=== PATIENT | female | born 1965 | race Caucasian/White ===

== ENCOUNTER 2019-07-03 08:59 | Outpatient (CLI) | payer BC ==
[~2019-07-03] VITALS: Ht 157.5 cm; Wt 179.6 kg
[2019-07-03] VITALS (11 sets, daily range): BP systolic 110–139; BP diastolic 62–86
[~2019-07-03 08:59] MED LIST: BUPR300T3 PO; FENO145T3 PO; FLUT9.9S NS; FURO-69 PO; GABA600T7 PO; HYDR-2769 PO; HYOS0.1264 PO; IODIXANOL 320 MG/ML 100 ML VIAL. ONE; LIDOCAINE 1% Multi-Dose 20 ML VIAL. ONE; LIRA0.6P2 SQ; LISI10TA2 PO; LORA10TA3 PO; MELO15TA23 PO; METF10007 PO; METH-38 PO; MONT10TA49 PO; ONDA4TAB7 PO; RANI150T2 PO
[2019-07-03 09:35] LABS: HEMATOCRIT 42.9 % (36.0-47.0); RED BLOOD COUNT 4.81 x10^6/uL (3.50-5.40); RED CELL DISTRIBUTION WIDTH 15.4 % (11.5-14.5); WHITE BLOOD COUNT 11.9 x10^3/uL (4.0-11.0)
[2019-07-03 09:41] LABS: PROTHROMBIN TIME PATIENT 12.1 SEC (11.7-14.0)
[2019-07-03 09:43] LABS: CALCIUM 9.5 mg/dL (8.5-10.1); CREATININE 0.9 mg/dL (0.6-1.0); GFR 65.5; POTASSIUM 3.9 mmol/L (3.5-5.1)
[2019-07-03] MEDS ORDERED: AMLO5TAB10 PO (09:52)
[2019-07-03] MEDS ORDERED: GABA300C18 PO (09:52)
[2019-07-03] MEDS ORDERED: VENTOLIN HFA18 GM INH (09:52)
[2019-07-03] MEDS ORDERED: NPH,100I3 SQ ×2 (09:52)
[2019-07-03] MEDS ORDERED: NORT25CA PO (09:52)
[2019-07-03] MEDS ORDERED: LISI-130 PO (09:52)
[2019-07-03] MEDS ORDERED: CELE100C PO (09:52)
[2019-07-03] MEDS ORDERED: FENO160T PO (09:52)
[2019-07-03] MEDS ORDERED: fentaNYL PF VIAL 100 MCG/2 ML VIAL ONE ×3 (09:58→11:14)
[2019-07-03] MEDS ORDERED: MIDAZOLAM HCL/PF 2 MG/2 ML VIAL. ONE ×3 (09:58→11:14)
[2019-07-03] MEDS ORDERED: NITROGLYCERIN 200 MCG/2 ML SYRINGE FOR CATH/VASC LAB. ONE (09:59)
[2019-07-03] MEDS ORDERED: VERAPAMIL 5 MG/2 ML VIAL. ONE (09:59)
[2019-07-03] MEDS ORDERED: HEPARIN for IV BOLUS 10,000 UNIT/10 ML VIAL. ONE (09:59)
[2019-07-03] MEDS ORDERED: NITROGLYCERIN 200 MCG/2 ML SYRINGE FOR CATH/VASC LAB. IART ONE (10:15)
[2019-07-03] MEDS ORDERED: fentaNYL PF VIAL 100 MCG/2 ML VIAL IV ONE (10:15)
[2019-07-03] MEDS ORDERED: HEPARIN for IV BOLUS 10,000 UNIT/10 ML VIAL. IART ONE (10:15)
[2019-07-03] MEDS ORDERED: IODIXANOL 320 MG/ML 100 ML VIAL. IART ONE (10:15)
[2019-07-03] MEDS ORDERED: MIDAZOLAM HCL/PF 2 MG/2 ML VIAL. IV ONE (10:15)
[2019-07-03] MEDS ORDERED: LIDOCAINE 1% Multi-Dose 20 ML VIAL. INJ ONE (10:15)
[2019-07-03] MEDS ORDERED: CONTRAST GIVEN. MC PRN (10:15)
[2019-07-03] MEDS ORDERED: VERAPAMIL 5 MG/2 ML VIAL. IART ONE (10:15)
[2019-07-03] MEDS ORDERED: diphenhydrAMINE 50 MG/ML VIAL ONE (11:02)
[2019-07-03] MEDS ORDERED: diphenhydrAMINE 50 MG/ML VIAL IVP ONE (11:30)
--- NOTE | 2019-07-03 12:02 | NUR ---
Respiratory therapy called to come do breathing treatment at bedside, patient's oxygen saturation = 84% and patient stated her daughter has her inhaler but her daughter left to run some errands.
--- NOTE | 2019-07-03 12:05 | CARD ---
MR#: [id number] Date of Study: 07/03/2019 Ordering Physician: ALYSSA MALDONADO Referring Physician: ALYSSA MALDONADO Tech: RT William (Wild) KATHY APPROVED REPORT Technologist: RT William (R) KATHY Nurse: Shanon Stiles RN Procedure(s) performed: Aortogram with bilateral lower extremity runoff Flouro time 3.8 minutes dose [id number] contrast 144 Visipaque Moderate Sedation 71 minutes INDICATION The indication(s) include : Nonhealing wound and peripheral artery stenosis on arterial duplex scan. PROCEDURE NARRATIVE After explaining the risks, benefits and alternative options, informed consent was obtained from jeison ent. Patient was brought to the cardiac Astrophysics Teacher and her left wrist was prepped and draped in the usu al fashion after confirming a positive modified Chandrakant's test. Arterial access was obtained in the lef t radial artery and 6 Faroese sheath was inserted. 6 Faroese PV catheter was used to perform descending aortogram. This was then advanced into the right external iliac artery and selective right lower ext remity angiography was performed. Subsequently, with this tip positioned in the left common iliac art angeli, selective left lower extremity angiography was performed. Patient tolerated the procedure well. Hemostasis was achieved using TR band. There were no immediate complications FINDINGS 1. No significant stenosis involving the distal descending aorta 2. No significant stenosis involving bilateral common and external iliac arteries 3. No significant stenosis involving bilateral common femoral arteries 4. No significant stenosis involving bilateral superficial femoral arteries 5. No significant stenosis involving bilateral popliteal arteries. There is three-vessel runoff belo w the knee bilaterally. Conclusion No significant peripheral artery stenosis. Signed by : Alyssa Maldonado, Electronically Approved : 07/03/2019 12:05:05
[2019-07-03] MEDS ORDERED: IV 1/2 NORMAL SALINE 1,000 ML IV SCH (12:06)
--- NOTE | 2019-07-03 12:06 | PDOC ---
MODERATE SEDATION ASSESSMENT RISKS/ALTERNATIVES Risks/Alternatives Risks and alternatives of this type of sedation and procedure discussed with: RISK/ALTERNATIVES: Patient H & P ON CHART H & P H & P on chart and reviewed for co-morbid conditions and appropriate labs. H&P ON CHART: Yes STATUS PREG STATUS ASSESSED: N/A MEDS/ALLERGIES REVIEWED Meds/Allergies Reviewed Medications and Allergies including time and route of recently administered narcotics and sedatives. MEDS/ALLERGIES REVIEWED: Yes ASA RATING ASA RATING: III AIRWAY ASSESSMENT Airway Assessment Airway patency, oral function limitations, presence of caps, crowns, dentures, partials, and ability to extend neck assessed. AIRWAY ASSESSMENT: Yes MALLAMPATI SCORE MALLAMPATI SCORE: II PRE-SEDATION ASSESSMENT PRE-SEDATION ASSESSMENT: Yes ALYSSA ROCHA MD Jul 03, 2019 12:06
--- NOTE | 2019-07-03 14:57 | NUR ---
Discharge Note: GERARDO MORLEY Discharge instructions and discharge home medications reviewed with Patient and daughter and a copy given. All questions have been answered and understanding verbalized. Patient ate lunch with no issues. The following instructions and handouts were given: moderate sedation, radial site care and peripheral vascular disease. Discontinued lines and drains: right hand, dressing clean dry intact. Patient discharged to home with daughter via wheelchair to private vehicle.
== END 2019-07-03 14:40 | disposition home or self-care (01) ==
LOC: CCL 08:59
PROVIDERS: ATTEND Internal Medicine Cardiovascular Disease
DX: I70.211 Atherosclerosis of native arteries of extremities with intermittent claudication, right leg (principal)
CPT/HCPCS: 36245; 36246; 36415; 75625; 75716; 80048; 85027; 85610; 94640; 99152; 99153; C1713; C1769; C1892; J1200; J1644; J2250; J3010; J3490; Q9967

== ENCOUNTER 2019-07-18 19:12 | Inpatient (IN) | payer BC ==
[~2019-07-18] VITALS: Ht 157.5 cm; Wt 177.1 kg
[~2019-07-18 19:12] MED LIST changes: +AMLO5TAB10 PO; +CELE100C PO; +FENO160T PO; +GABA300C18 PO; -IODIXANOL 320 MG/ML 100 ML VIAL. ONE; -LIDOCAINE 1% Multi-Dose 20 ML VIAL. ONE; +LISI-130 PO; +NORT25CA PO; +NPH,100I3 SQ; +VENTOLIN HFA18 GM INH
[2019-07-18 23:51] LABS: BASO # 0.1 x10^3/uL (0.0-0.2); BASO % 1 % (0-3); EOS % 0 % (0-3); HEMATOCRIT 37.5 % (36.0-47.0); HEMOGLOBIN 12.3 g/dL (12.0-15.5); LYMPH % 8 % (24-48); MEAN CORPUSCULAR HEMOGLOBIN 29 pg (25-35); MEAN CORPUSCULAR HGB CONC 33 g/dL (31-37); MEAN CORPUSCULAR VOLUME 88 fL (79-100); MONO # 0.6 x10^3/uL (0.0-1.1); MONO % 5 % (0-9); NEUT # 11.3 x10^3/uL (1.8-7.7); NEUT % 87 % (31-73); PLATELET COUNT 315 x10^3/uL (140-400); RED BLOOD COUNT 4.28 x10^6/uL (3.50-5.40); RED CELL DISTRIBUTION WIDTH 15.7 % (11.5-14.5); WHITE BLOOD COUNT 13.1 x10^3/uL (4.0-11.0)
--- NOTE | 2019-07-18 23:55 | PHYS DOC ---
Adult General Chief Complaint Chief Complaint: CELLULITIS HPI HPI 53-year-old female presents to the emergency department with complaints of lower extremity infection. Patient has a history of diabetes, depression, GERD, chronic pain. Patient has as an outpatient and being treated for lower extremity wounds however she's noticed increasing erythema and pain to her right lower extremity. She did have a procedure done by Dr. Ruiz with angiography on July 03, 2018. Patient states the wound care has been ongoing for a few months. She describes chills, pain to RLE, open wounds with drainage. States she has had vascular imaging to eval arterial blood flow which was negative.. Patient does complain of nausea on exam Review of Systems Review of Systems Constitutional: chills Respiratory: Denies cough or shortness of breath [] Cardiovascular: No additional information not addressed in HPI [] GI: Denies abdominal pain, + nausea, no vomiting, bloody stools or diarrhea [] Musculoskeletal: right lower ext pain Integument: erythema/warmth appreciated to right lower ext, drainage of wound to RLE Neurologic: Denies headache, focal weakness or sensory changes [] All other systems were reviewed and found to be within normal limits, except as documented in this note. Current Medications Current Medications Current Medications Medications (Trade) Dose Ordered Sig/Usman Start Time Stop Time Status Last Admin Dose Admin Vancomycin HCl (Vanco Per Pharmacy) 1 each PRN DAILY PRN 07/18/19 23:45 07/19/19 02:23 1 EACH Allergies Allergies Allergies Coded Allergies Type Severity Reaction Last Updated Verified No Known Drug Allergies 06/30/19 No Physical Exam Physical Exam Constitutional: Well developed, well nourished, mild distress 2/2 pain, non- toxic appearance. [] Cardiovascular: Tachycardia Lungs & Thorax: Bilateral breath sounds clear to auscultation [] Abdomen: Bowel sounds normal, soft, no tenderness, no masses, no pulsatile masses. [] Skin: Warm/Erythema, drainage from right lower ext wound, erythema has moved up past the knee and into the thigh Back: No tenderness, no CVA tenderness. [] Extremities: No tenderness, no edema. [] Neurologic: Alert and oriented X 3, no focal deficits noted. [] Psychologic: Affect normal, judgement normal, mood normal. [] Current Patient Data Vital Signs Vital Signs Date Time Temp Pulse Resp B/P (MAP) Pulse Ox O2 Delivery O2 Flow Rate FiO2 1/7/20 23:33 122 23 135/63 (87) 93 Room Air 07/18/19 22:50 99.9 99.9 Lab Values Laboratory Tests Test 07/18/19 23:30 White Blood Count 13.1 x10^3/uL (4.0-11.0) H Red Blood Count 4.28 x10^6/uL (3.50-5.40) Hemoglobin 12.3 g/dL (12.0-15.5) Hematocrit 37.5 % (36.0-47.0) Mean Corpuscular Volume 88 fL (79-100) Mean Corpuscular Hemoglobin 29 pg (25-35) Mean Corpuscular Hemoglobin Concent 33 g/dL (31-37) Red Cell Distribution Width 15.7 % (11.5-14.5) H Platelet Count 315 x10^3/uL (140-400) Neutrophils (%) (Auto) 87 % (31-73) H Lymphocytes (%) (Auto) 8 % (24-48) L Monocytes (%) (Auto) 5 % (0-9) Eosinophils (%) (Auto) 0 % (0-3) Basophils (%) (Auto) 1 % (0-3) Neutrophils # (Auto) 11.3 x10^3/uL (1.8-7.7) H Lymphocytes # (Auto) 1.0 x10^3/uL (1.0-4.8) Monocytes # (Auto) 0.6 x10^3/uL (0.0-1.1) Eosinophils # (Auto) 0.0 x10^3/uL (0.0-0.7) Basophils # (Auto) 0.1 x10^3/uL (0.0-0.2) Segmented Neutrophils % 74 % (35-66) H Band Neutrophils % 4 % (0-9) Lymphocytes % 15 % (24-48) L Monocytes % 7 % (0-10) Toxic Granulation Slight Platelet Estimate Adequate (ADEQUATE) D-Dimer (Ellyn) 1.09 ug/mlFEU (0.00-0.50) H Sodium Level 136 mmol/L (136-145) Potassium Level 4.1 mmol/L (3.5-5.1) Chloride Level 100 mmol/L (98-107) Carbon Dioxide Level 27 mmol/L (21-32) Anion Gap 9 (6-14) Blood Urea Nitrogen 17 mg/dL (7-20) Creatinine 1.1 mg/dL (0.6-1.0) H Estimated GFR (Cockcroft-Gault) 52.0 BUN/Creatinine Ratio 15 (6-20) Glucose Level 197 mg/dL (70-99) H Lactic Acid Level 1.6 mmol/L (0.4-2.0) Calcium Level 9.2 mg/dL (8.5-10.1) Total Bilirubin 0.3 mg/dL (0.2-1.0) Aspartate Amino Transferase (AST) 19 U/L (15-37) Alanine Aminotransferase (ALT) 19 U/L (14-59) Alkaline Phosphatase 69 U/L (46-116) Creatine Kinase 193 U/L (26-192) H Total Protein 7.5 g/dL (6.4-8.2) Albumin 3.3 g/dL (3.4-5.0) L Albumin/Globulin Ratio 0.8 (1.0-1.7) L Procalcitonin 0.63 ng/mL (0.00-0.10) H Laboratory Tests 07/18/19 23:30 Laboratory Tests 07/18/19 23:30 EKG EKG EKG with Sinus Tachycardia 120's, normal axis appreciated, no STEMI, interpretation time 0005[] Radiology/Procedures Radiology/Procedures [facility] [address] [place] [address] IMAGING REPORT Signed PATIENT: GERARDO MORLEY AACCOUNT: [id number] : 1965 LOCATION: [facility] AGE: 53 SEX: F EXAM STATUS: ADM IN ORD. PHYSICIAN: MESERET MORAN MD REASON: elevated ddimer, edema, cellulitis PROCEDURE: VENOUS LOWER EXTREMITY RIGHT Right lower extremity venous duplex Doppler ultrasound HISTORY: Elevated d-dimer, right leg edema and swelling. FINDINGS: No DVT evident with compressibility, patent color Doppler blood flow and augmentation of blood flow the right common femoral vein, profunda femoral vein, superficial femoral vein and popliteal vein. No DVT evident with patent color Doppler blood flow of the posterior tibial peroneal veins in the calf. Right calf edema. IMPRESSION: Negative right leg for DVT. Electronically signed by: Gabino Lai MD (07/19/2019 1:53 AM) [facility] DICTATED and SIGNED BY: GABINO LAI MD DATE: 07/19/19 0153 [] Course & Med Decision Making Course & Med Decision Making Pertinent Labs and Imaging studies reviewed. (See chart for details) []53-year-old female presents to the emergency department with complaints of lower extremity infection. Patient has a history of diabetes, depression, GERD, chronic pain. Patient has as an outpatient and being treated for lower extremity wounds however she's noticed increasing erythema and pain to her right lower extremity. She did have a procedure done by Dr. Ruiz with angiography on July 03, 2018. Patient states the wound care has been ongoing for a few months. She describes chills, pain to RLE, open wounds with drainage. States she has had vascular imaging to eval arterial blood flow which was negative.. Patient does complain of nausea on exam Labs reviewed Lactic acid within normal limits Patient meets sepsis criteria IVF 30ml/kg bolus (ideal body weight) Cultures obtained Abx intitiated Dragon Disclaimer Dragon Disclaimer This electronic medical record was generated, in whole or in part, using a voice recognition dictation system. Date and Time of Reassessment Date: Jul 19, 2019 Time: 01:00 Fluid Challenge Is the fluid challenge complet: No IBW Target Volume Used: Yes BMI > 30: Yes Vital Signs Vital Signs: Vital Signs Date Time Temp Pulse Resp B/P (MAP) Pulse Ox O2 Delivery O2 Flow Rate FiO2 07/18/19 23:33 122 23 135/63 (87) 93 Room Air 07/18/19 22:50 99.9 99.9 Temperature Source: Oral Respirations Respiratory Effort: Normal Cardiovascular Pulse Rhythm: Irregular Heart: No rubs, clicks or gallop Lung Sounds Breath Sounds: Clear Capillary Refil Capillary Refill: Rt Hand < 3 seconds Peripheral Pulse Pulse Location: Dorsalis Pedis Pulse Strength: Normal (2+) Pulse Assessment Method: NIBP Integumentary Skin Moisture: Dry Departure Departure Impression: Primary Impression: Sepsis Additional Impression: Cellulitis of right lower extremity Disposition: ADMITTED INPATIENT Admitting Physician: CARTER Condition: STABLE Referrals: AMENA SHEEHAN MD (PCP) Critical Care Time Critical care time was 35 minutes exclusive of procedures. Problem Qualifiers Primary Impression: Sepsis Sepsis type: sepsis due to unspecified organism Sepsis acute organ dysfunction status: without acute organ dysfunction Qualified Codes: A41.9 - Sepsis, unspecified organism MESERET MORAN MD Jul 18, 2019 23:54
[2019-07-18 23:59] LABS: CALCIUM 9.2 mg/dL (8.5-10.1); CREATININE 1.1 mg/dL (0.6-1.0); POTASSIUM 4.1 mmol/L (3.5-5.1)
[2019-07-19] MEDS ORDERED: PIPERACILLIN/TAZOBACTAM 4.5 GM in IV NORMAL SALINE 100ML 100 ML IV ONE ×2
[2019-07-19 00:05] LABS: ALBUMIN 3.3 g/dL (3.4-5.0); ALBUMIN/GLOBULIN RATIO 0.8 (1.0-1.7); TOTAL BILIRUBIN 0.3 mg/dL (0.2-1.0); TOTAL PROTEIN 7.5 g/dL (6.4-8.2)
[2019-07-19 00:16] LABS: % BANDS 4 % (0-9); % LYMPHS 15 % (24-48); % MONOS 7 % (0-10); % SEGS 74 % (35-66); PLT ESTIMATE ADEQUATE (ADEQUATE); TOXIC GRANULATION SLIGHT
[2019-07-19] MEDS: IV NORMAL SALINE 1000ML BAG 1,000 ML IV SCH ×2 (00:17→01:00)
[2019-07-19] MEDS ORDERED: ONDANSETRON PF 4 MG/2 ML VIAL. IV ONE (00:30)
[2019-07-19] MEDS ORDERED: MORPHINE SULFATE 4 MG/ML VIAL. IV ONE (00:30)
[2019-07-19] MEDS ORDERED: VANCOMYCIN 2 GM in IV NORMAL SALINE 500ML BAG 500 ML IV ONE (00:30)
--- NOTE | 2019-07-19 01:56 | RAD ---
Right lower extremity venous duplex Doppler ultrasound HISTORY: Elevated d-dimer, right leg edema and swelling. FINDINGS: No DVT evident with compressibility, patent color Doppler blood flow and augmentation of blood flow the right common femoral vein, profunda femoral vein, superficial femoral vein and popliteal vein. No DVT evident with patent color Doppler blood flow of the posterior tibial peroneal veins in the calf. Right calf edema. IMPRESSION: Negative right leg for DVT. Electronically signed by: Deng Lai MD (07/19/2019 1:53 AM) [facility]
[2019-07-19] MEDS: VANCOMYCIN PER PHARMACY MC PRN (02:23)
--- NOTE | 2019-07-19 02:23 | NUR ---
Pharmacy Vancomycin Dosing Note S:Consulted to monitor and dose vancomycin started 07/19/19. O:GERARDO MORLEY is a 53 year old F with Cellulitis Sepsis . Height: 5 feet, 2 inches Weight: 152.76099 kg [place] Body Weight: 50.10 Adjusted Body Weight: 91.18 Dosing Weight: Actual Other Antibiotics: ZOSYN X1 ED LABS: Last BUN: 17 Last Creatinine: 1.1 Creatinine Clearance: 85 mL/min Last WBC: 13.1 Last Procalcitonin: 0.63 Tmax (past 24 hours): Microbiology: I/O: Drug Levels: Last level: on at Last dose given 07/19/19 at 0030 Vancomycin Dosing: Loading Dose: 2000 mg x1 Dosing Weight: Actual Target Trough: 15-20 A: Based on: WT AND CRCL P: 1. Begin Vancomycin 2000 mg IV q12h 2. Follow up Trough level on 07/20/19 at 1130 3. Pharmacy will continue to monitor, follow and adjust therapy as needed. OSMIN ALVA RPH, 07/19/19222 Signed: 07/19/19 at 222 by OSMIN ALVA RPH PHA
--- NOTE | 2019-07-19 02:30 | NUR ---
The patient, GERARDO MORLEY, 53 y/o, F admitted by FREDERIC MADRIGAL MD, was given written information regarding hospital policies, unit procedures and contact persons. Patient was transferred to room 554 via ED bed assisted by ED staff member. Valuables were checked and noted. Patient is currently laying in bed watching TV, right leg elevated on a pillow. Patient states no needs at this time. this RN will continue to monitor this patient.
[2019-07-19 03:00] VITALS: BP 132/57
[2019-07-19] MEDS: MORPHINE SULFATE 4 MG/ML VIAL. IV PRN ×2 (04:51→14:47)
[2019-07-19 07:00] VITALS: BP 117/67
--- NOTE | 2019-07-19 07:17 | EKG ---
[facility] [address] [place] [address] Test Date: 2019-07-19 Test Time: 00:05:36 Pat Name: GERARDO MORLEY Department: Room: Gender: F Civil Attorney: : 1965 Requested By: MESERET MORAN Order Number: [id number] Reading MD: Measurements Intervals [place] Rate: 121 P: 115 IN: 114 QRS: 28 QRSD: 90 T: 76 QT: 320 QTc: 457 Interpretive Statements SINUS TACHYCARDIA LEFT ATRIAL ABNORMALITY QRS(T) CONTOUR ABNORMALITY CONSIDER ANTEROLATERAL MYOCARDIAL DAMAGE CONSIDER INFERIOR MYOCARDIAL DAMAGE ABNORMAL ECG RI6.01 No previous ECG available for comparison
--- NOTE | 2019-07-19 08:09 | PDOC1 ---
History and Physical Date of Admission Date of Admission DATE: 07/19/19 TIME: 08:02 Identification/Chief Complaint Chief Complaint Right leg pain Source Source: Patient History of Present Illness History of Present Illness Ms Steele 53-year-old female w/ PMHx DM2, PCOS, Depression, GERD, chronic pain on permanent disability, smoker, RLE venous stasis who p/w lower extremity infection. Patient has as an outpatient and being treated for lower extremity wounds however she's noticed increasing erythema and pain to her right lower extremity. She did have a procedure done by Dr. Ruiz with angiography on July 03, 2018 which was negative for vascular occlusion. Patient states the wound care has been ongoing for 8 months. She describes chills, pain to RLE, open wounds with drainage. States she has had vascular imaging to eval arterial blood flow which was negative and venous doppler negative for DVT. Patient does complain of nausea on exam WBC 13.1, HR 120s, admitted for cellulitis failing outpatient treatment at wound center. Past Medical History Cardiovascular: HTN, Hyperlipidemia Pulmonary: Asthma GI: GERD Heme/Onc: No pertinent hx Hepatobiliary: No pertinent hx Psych: Depression Musculoskeletal: low back pain Rheumatologic: Other (Chronic pain) Infectious disease: No pertinent hx ENT: No pertinent hx Renal/: No pertinent hx Endocrine: Diabetes Dermatology: No pertinent hx Past Surgical History Past Surgical History: Cholecystectomy, Tonsillectomy Family History Family History: Coronary Artery Disease, Diabetes, High Cholestrol Social History Smoke: <1 pack per day ALCOHOL: none Drugs: None Current Problem List Problem List Problems Medical Problems: (1) Cellulitis of right lower extremity Status: Acute (2) Sepsis Status: Acute Current Medications Current Medications Current Medications Piperacillin Sod/ Tazobactam Sod 4.5 gm/Sodium Chloride 100 ml @ 200 mls/hr 1X ONCE IV Last administered on 07/19/19at 00:18; Start 07/19/19 at 00:00; Stop 07/19/19 at 00:29; Status DC Vancomycin HCl (Vanco Per Pharmacy) 1 each PRN DAILY PRN MC SEE COMMENTS Last administered on 07/19/19at 02:23; Start 07/18/19 at 23:45 Sodium Chloride 1,000 ml @ 1,000 mls/hr Q1H IV Last administered on 07/19/19at 00:17; Start 07/19/19 at 00:00; Stop 07/19/19 at 01:29; Status DC Morphine Sulfate (Morphine Sulfate) 4 mg 1X ONCE IV Last administered on 07/19/19at 00:19; Start 07/19/19 at 00:30; Stop 07/19/19 at 00:31; Status DC Ondansetron HCl (Zofran) 4 mg 1X ONCE IV Last administered on 07/19/19at 00:19; Start 07/19/19 at 00:30; Stop 07/19/19 at 00:31; Status DC Vancomycin HCl 2 gm/Sodium Chloride 500 ml @ 250 mls/hr 1X ONCE IV Last administered on 07/19/19at 00:22; Start 07/19/19 at 00:30; Stop 07/19/19 at 02:29; Status DC Vancomycin HCl 2 gm/Sodium Chloride 500 ml @ 250 mls/hr Q12H IV ; Start 07/19/19 at 12:00 Vancomycin HCl (Vancomycin Trough Level) 1 each 1X ONCE MC ; Start 07/20/19 at 11:30; Stop 07/20/19 at 11:31 Morphine Sulfate (Morphine Sulfate) 4 mg PRN Q4HRS PRN IV SEVERE PAIN 7-10 Last administered on 07/19/19at 04:51; Start 07/19/19 at 04:45 Active Scripts Active Reported Nortriptyline Hcl 25 Mg Capsule 1 Cap PO QHS Celebrex (Celecoxib) 100 Mg Capsule 100 Mg PO BID 30 Days Amlodipine Besylate 5 Mg Tablet 5 Mg PO DAILY Humulin N Kwikpen (Nph, Human Insulin Isophane) 100 Unit/1 Ml Insuln.pen 32 Unit SQ HS Humulin N Kwikpen (Nph, Human Insulin Isophane) 100 Unit/1 Ml Insuln.pen 34 Unit SQ DAILYWBKFT Ventolin Hfa Inhaler (Albuterol Sulfate) 18 Gm Hfa.aer.ad 2 Puff INH Q4HRS Lisinopril 40 Mg Tablet 40 Mg PO DAILY Fenofibrate 160 Mg Tablet 160 Mg PO DAILY Gabapentin 300 Mg Capsule 900 Mg PO TID Zofran (Ondansetron Hcl) 4 Mg Tablet 1 Tab PO Q6HRS Levsin (Hyoscyamine Sulfate) 0.125 Mg Tablet 1 Tab PO Q4HRS Flonase Allergy Relief (Fluticasone Propionate) 9.9 Ml [place].susp 2 Sprays NS DAILY Robaxin-750 (Methocarbamol) 750 Mg Tablet 1 Tab PO TID Hydrocodone-Apap 10-325 (Hydrocodone Bit/Acetaminophen) 1 Each Tablet 1 Tab PO PRN Q6HRS PRN Ranitidine Hcl 150 Mg Tablet 2 Tab PO BID Wellbutrin Xl (Bupropion Hcl) 300 Mg Tab.er.24h 1 Tab PO DAILY Lasix (Furosemide) 20 Mg Tablet 2 Tab PO DAILY may take additional tabs Montelukast Sodium Tablet (Montelukast Sodium) 10 Mg Tablet 1 Tab PO DAILY Loratadine 10 Mg Tablet 1 Tab PO DAILY Metformin Hcl 1,000 Mg Tablet 1,000 Mg PO BID resume Wednesday PM hernández 07/05 Allergies Allergies: Coded Allergies: No Known Drug Allergies (Unverified , 06/30/19) ROS General: YES: Chills, Fatigue, Malaise; No: Night Sweats, Appetite, Other PSYCHOLOGICAL ROS: YES: Anxiety; No: Behavioral Disorder, Concentration difficultie, Decreased libido, Depression, Disorientation, Hallucinations, Hostility, Irritablity, Memory difficulties, Mood Swings, Obsessive thoughts, Physical abuse, Sexual abuse, Sleep disturbances, Suicidal ideation, Other Eyes: No Blurry vision, No Decreased vision, No Double vision, No Dry eyes, No Excessive tearing, No Eye Pain, No Itchy Eyes, No Loss of vision, No Photophobi a, No Scotomata, No Uses contacts, No Uses glasses, No Other HEENT: No: Heacaches, Visual Changes, Hearing change, Nasal congestion, Nasal discharge, Oral lesions, Sinus pain, Sore Throat, Epistaxis, Sneezing, Snoring, Tinnitus, Vertigo, Vocal changes, Other ALLERGY AND IMMUNOLOGY: No: Hives, Insect Bite Sensitivity, Itchy/Watery Eyes, Nasal Congestion, Post Nasal Drip, Seasonal Allergies, Other Hematological and Lymphatic: No: Bleeding Problems, Blood Clots, Blood Transfusions, Brusing, Night Sweats, Pallor, Swollen Lymph Nodes, Other ENDOCRINE: No: Breast Changes, Galactorrhea, Hair Pattern Changes, Hot Flashes, Malaise/lethargy, Mood Swings, Palpitations, Polydipsia/polyuria, Skin Changes, Temperature Intolerance, Unexpected Weight Changes, Other Breast: No New/Changing Breast Lumps, No Nipple changes, No Nipple discharge, No Other Respiratory: No: Cough, Hemoptysis, Orthopnea, Pleuritic Pain, Shortness of breath, SOB with excertion, Sputum Changes, Stridor, Tachypnea, Wheezing, Other Cardiovascular: yes Edema; No Chest Pain, No Palpitations, No Orthopnea, No Paroxysmal Noc. Dyspnea, No Lt Headedness, No Other Gastrointestinal: Yes Nausea; No Vomiting, No Abdominal Pain, No Diarrhea, No Constipation, No Melena, No Hematochezia, No Other Genitourinary: No Dysuria, No Frequency, No Incontinence, No Hematuria, No Retention, No Discharge, No Urgency, No Pain, No Flank Pain, No Other, No , No , No , No , No , No , No Musculoskeletal: Yes Gait Disturbance; No Joint Pain, No Joint Stiffness, No Joint Swelling, No Muscle Pain, No Muscular Weakness, No Pain In:, No Swelling In:, No Other Neurological: No Behavorial Changes, No Bowel/Bladder ControlChng, No Confusion, No Dizziness, No Gait Disturbance, No Headaches, No Impaired Coord/balance, No Memory Loss, No Numbness/Tingling, No Seizures, No Speech Problems, No Tremors, No Visual Changes, No Weakness, No Other Skin: Yes Rash, Yes Skin Lesion Changes; No Dry Skin, No Eczema, No Hair Changes, No Lumps, No Mole Changes, No Mottling, No Nail Changes, No Pruritus, No Other, No Acne Physical Exam General: Alert, Oriented X3, Cooperative, No acute distress HEENT: Atraumatic, PERRLA, EOMI, Mucous membr. moist/pink Lungs: Clear to auscultation, Normal air movement Heart: S1S2, RRR, no thrills, no rubs, no gallops, no murmurs Abdomen: Normal bowel sounds, Soft, No tenderness, No hepatosplenomegaly, No masses Extremities: No clubbing, No cyanosis, Normal pulses, Other (RLE tender and swollen to thigh) Skin: No breakdown, Other (RLE with rash up to thigh, red, hot, swollen) Neuro: Normal speech, Strength at 5/5 X4 ext, Normal tone, Sensation intact, Cr anial nerves 3-12 NL, Reflexes 2+ Psych/Mental Status: Mental status NL, Mood NL Vitals Vitals Vital Signs Date Time Temp Pulse Resp B/P (MAP) Pulse Ox O2 Delivery O2 Flow Rate FiO2 07/19/19 04:51 Nasal Cannula 3.0 07/19/19 03:00 98.6 22 17 132/57 (82) 97 98.6 Labs Labs Laboratory Tests Test 07/18/19 23:30 07/19/19 07:22 White Blood Count 13.1 x10^3/uL (4.0-11.0) Red Blood Count 4.28 x10^6/uL (3.50-5.40) Hemoglobin 12.3 g/dL (12.0-15.5) Hematocrit 37.5 % (36.0-47.0) Mean Corpuscular Volume 88 fL (79-100) Mean Corpuscular Hemoglobin 29 pg (25-35) Mean Corpuscular Hemoglobin Concent 33 g/dL (31-37) Red Cell Distribution Width 15.7 % (11.5-14.5) Platelet Count 315 x10^3/uL (140-400) Neutrophils (%) (Auto) 87 % (31-73) Lymphocytes (%) (Auto) 8 % (24-48) Monocytes (%) (Auto) 5 % (0-9) Eosinophils (%) (Auto) 0 % (0-3) Basophils (%) (Auto) 1 % (0-3) Neutrophils # (Auto) 11.3 x10^3/uL (1.8-7.7) Lymphocytes # (Auto) 1.0 x10^3/uL (1.0-4.8) Monocytes # (Auto) 0.6 x10^3/uL (0.0-1.1) Eosinophils # (Auto) 0.0 x10^3/uL (0.0-0.7) Basophils # (Auto) 0.1 x10^3/uL (0.0-0.2) Segmented Neutrophils % 74 % (35-66) Band Neutrophils % 4 % (0-9) Lymphocytes % 15 % (24-48) Monocytes % 7 % (0-10) Toxic Granulation Slight Platelet Estimate Adequate (ADEQUATE) D-Dimer (Ellyn) 1.09 ug/mlFEU (0.00-0.50) Sodium Level 136 mmol/L (136-145) Potassium Level 4.1 mmol/L (3.5-5.1) Chloride Level 100 mmol/L (98-107) Carbon Dioxide Level 27 mmol/L (21-32) Anion Gap 9 (6-14) Blood Urea Nitrogen 17 mg/dL (7-20) Creatinine 1.1 mg/dL (0.6-1.0) Estimated GFR (Cockcroft-Gault) 52.0 BUN/Creatinine Ratio 15 (6-20) Glucose Level 197 mg/dL (70-99) Lactic Acid Level 1.6 mmol/L (0.4-2.0) Calcium Level 9.2 mg/dL (8.5-10.1) Total Bilirubin 0.3 mg/dL (0.2-1.0) Aspartate Amino Transf (AST/SGOT) 19 U/L (15-37) Alanine Aminotransferase (ALT/SGPT) 19 U/L (14-59) Alkaline Phosphatase 69 U/L (46-116) Creatine Kinase 193 U/L (26-192) Total Protein 7.5 g/dL (6.4-8.2) Albumin 3.3 g/dL (3.4-5.0) Albumin/Globulin Ratio 0.8 (1.0-1.7) Procalcitonin 0.63 ng/mL (0.00-0.10) Glucose (Fingerstick) 194 mg/dL (70-99) Laboratory Tests Test 07/18/19 23:30 07/19/19 07:22 White Blood Count 13.1 x10^3/uL (4.0-11.0) Red Blood Count 4.28 x10^6/uL (3.50-5.40) Hemoglobin 12.3 g/dL (12.0-15.5) Hematocrit 37.5 % (36.0-47.0) Mean Corpuscular Volume 88 fL (79-100) Mean Corpuscular Hemoglobin 29 pg (25-35) Mean Corpuscular Hemoglobin Concent 33 g/dL (31-37) Red Cell Distribution Width 15.7 % (11.5-14.5) Platelet Count 315 x10^3/uL (140-400) Neutrophils (%) (Auto) 87 % (31-73) Lymphocytes (%) (Auto) 8 % (24-48) Monocytes (%) (Auto) 5 % (0-9) Eosinophils (%) (Auto) 0 % (0-3) Basophils (%) (Auto) 1 % (0-3) Neutrophils # (Auto) 11.3 x10^3/uL (1.8-7.7) Lymphocytes # (Auto) 1.0 x10^3/uL (1.0-4.8) Monocytes # (Auto) 0.6 x10^3/uL (0.0-1.1) Eosinophils # (Auto) 0.0 x10^3/uL (0.0-0.7) Basophils # (Auto) 0.1 x10^3/uL (0.0-0.2) Segmented Neutrophils % 74 % (35-66) Band Neutrophils % 4 % (0-9) Lymphocytes % 15 % (24-48) Monocytes % 7 % (0-10) Toxic Granulation Slight Platelet Estimate Adequate (ADEQUATE) D-Dimer (Ellyn) 1.09 ug/mlFEU (0.00-0.50) Sodium Level 136 mmol/L (136-145) Potassium Level 4.1 mmol/L (3.5-5.1) Chloride Level 100 mmol/L (98-107) Carbon Dioxide Level 27 mmol/L (21-32) Anion Gap 9 (6-14) Blood Urea Nitrogen 17 mg/dL (7-20) Creatinine 1.1 mg/dL (0.6-1.0) Estimated GFR (Cockcroft-Gault) 52.0 BUN/Creatinine Ratio 15 (6-20) Glucose Level 197 mg/dL (70-99) Lactic Acid Level 1.6 mmol/L (0.4-2.0) Calcium Level 9.2 mg/dL (8.5-10.1) Total Bilirubin 0.3 mg/dL (0.2-1.0) Aspartate Amino Transf (AST/SGOT) 19 U/L (15-37) Alanine Aminotransferase (ALT/SGPT) 19 U/L (14-59) Alkaline Phosphatase 69 U/L (46-116) Creatine Kinase 193 U/L (26-192) Total Protein 7.5 g/dL (6.4-8.2) Albumin 3.3 g/dL (3.4-5.0) Albumin/Globulin Ratio 0.8 (1.0-1.7) Procalcitonin 0.63 ng/mL (0.00-0.10) Glucose (Fingerstick) 194 mg/dL (70-99) VTE Prophylaxis Ordered VTE Prophylaxis Devices: No VTE Pharmacological Prophylaxi: Yes Assessment/Plan Assessment/Plan A/P: Cellulitis of right lower extremity - will start on empiric antibiotics to cover strep and staph. Has risk for polymicrobial infection with diabetic and wound history Sepsis - will cont IVF and antibiotics DM2 - basal bolus plus insulin. A1c was 10.1 last check HTN - cont meds HLD - cont statin/fibrate Depression - cont wellbutrin Chronic pain - will cont meds. On permanent disability for her back Acute hypoxic respiratory failure - not on home O2, no formal COPD diagnosis that she knows of. Is a smoker, relapsed recently. Will obtain CXR Smoker - counseled on cessation FEN - ADA PPX - Lovenox FULL CODE Dispo - inpatient for RLE cellulitis failing outpatient treatment SARAI LUCAS MD Jul 19, 2019 08:09
[2019-07-19] MEDS ORDERED: HYDROcodone/APAP 10/325 1 TAB TABLET PO PRN (08:15)
[2019-07-19] MEDS ORDERED: METHOCARBAMOL 750 MG TABLET PO PRN (08:15)
[2019-07-19] MEDS: amLODIPine BESYLATE 5 MG TABLET PO SCH (08:36)
[2019-07-19] MEDS: MONTELUKAST SODIUM 10 MG TABLET. PO SCH (08:37)
[2019-07-19] MEDS: LISINOPRIL 20 MG TABLET PO SCH (08:37)
[2019-07-19] MEDS: buPROPion XL 150 MG TAB.ER.24H. PO SCH (08:37)
[2019-07-19] MEDS: GABAPENTIN 300 MG CAPSULE. PO SCH ×3 (08:43→20:35)
[2019-07-19] MEDS: ALBUTEROL SULFATE 2.5 MG/3 ML NEBU. NEB SCH ×5 (08:45→23:53)
[2019-07-19 11:00] VITALS: BP 89/40
[2019-07-19] MEDS: CETIRIZINE HCL 10 MG TABLET. PO SCH (11:24)
[2019-07-19] MEDS: INSULIN GLARGINE SYRINGE. SQ SCH ×2 (11:27→20:50)
[2019-07-19] MEDS ORDERED: NON FORMULARY ITEM (Albuterol Sulfate (Ventolin Hfa Inhaler) 2 PUFF) INH SCH (12:00)
[2019-07-19] MEDS: VANCOMYCIN 2 GM in IV NORMAL SALINE 500ML BAG 500 ML IV SCH (12:26)
[2019-07-19] MEDS: HYDROcodone/APAP 7.5/325MG 1 TAB TABLET PO PRN ×2 (12:48→20:36)
--- NOTE | 2019-07-19 14:03 | NUR ---
Wound Care; Consult to eval and treat for RLE wounds with acute onset cellulitis. Pt is known to outpatient clinic for these wounds. RLE cleansed and wound measured. Leg swollen, red, and taut from foot to above knee, marked with sharpie by pt's nurse. Covered with ABD and kerlix, to be changed daily. Plan to follow up 07/26/2019, possibly considering compression after redness improves. No other open areas noted on head to toe inspection. Pt laying supine per preference, educated on turning periodically to avoid pressure related skin breakdown.
[2019-07-19] MEDS ORDERED: IV DEXTROSE 5% 250 ML BAG. IV PRN (14:45)
[2019-07-19] MEDS ORDERED: DEXTROSE 50% 25 GM / 50ML DISP.SYRIN. IV PRN (14:45)
[2019-07-19 15:00] VITALS: BP 111/49
[2019-07-19] MEDS: KETOROLAC 30 MG/ML VIAL. IVP PRN (15:56)
[2019-07-19] MEDS: HYDROmorphone 2 MG/ML VIAL IV PRN (17:26)
--- NOTE | 2019-07-19 17:49 | RAD ---
CHEST AP ONLY Clinical Indication: Hypoxia Comparison: None. Findings: Portable upright film of the chest was obtained. Cardiomegaly is noted but may in part be artifactual due to technique. No pneumothorax. Pulmonary vasculature is borderline. No definite effusion. Bony structures unremarkable. IMPRESSION: Cardiomegaly. Borderline pulmonary vasculature. No infiltrate. Electronically signed by: Rashaun Marshall MD (07/19/2019 5:47 PM) [facility]
[2019-07-19] MEDS: INSULIN LISPRO 300 UNITS/3 ML VIAL. SQ SCH ×2 (18:11→20:49)
[2019-07-19 19:00] VITALS: BP 96/55
[2019-07-19] MEDS: NORTRIPTYLINE 25 MG CAPSULE PO SCH (20:35)
[2019-07-19] MEDS: LACTOBACILLUS RHAMNOSUS GG 1 CAPSULE. PO SCH (20:35)
[2019-07-19 23:00] VITALS: BP 132/67
[2019-07-20] MEDS: VANCOMYCIN 2 GM in IV NORMAL SALINE 500ML BAG 500 ML IV SCH ×2 (01:07→12:00)
[2019-07-20 03:00] VITALS: BP 150/66
[2019-07-20] MEDS: HYDROcodone/APAP 7.5/325MG 1 TAB TABLET PO PRN ×5 (03:12→22:01)
[2019-07-20] MEDS: ALBUTEROL SULFATE 2.5 MG/3 ML NEBU. NEB SCH ×5 (03:36→19:51)
[2019-07-20 07:00] VITALS: BP 134/68
[2019-07-20] MEDS: INSULIN LISPRO 300 UNITS/3 ML VIAL. SQ SCH ×4 (07:30→21:00)
[2019-07-20] MEDS: INSULIN GLARGINE SYRINGE. SQ SCH ×2 (08:13→22:05)
[2019-07-20] MEDS: buPROPion XL 150 MG TAB.ER.24H. PO SCH (08:14)
[2019-07-20] MEDS: GABAPENTIN 300 MG CAPSULE. PO SCH ×3 (08:14→21:34)
[2019-07-20] MEDS: MONTELUKAST SODIUM 10 MG TABLET. PO SCH (08:14)
[2019-07-20] MEDS: LACTOBACILLUS RHAMNOSUS GG 1 CAPSULE. PO SCH ×2 (08:14→21:34)
[2019-07-20] MEDS: LISINOPRIL 20 MG TABLET PO SCH (08:15)
[2019-07-20] MEDS: CETIRIZINE HCL 10 MG TABLET. PO SCH (08:15)
[2019-07-20] MEDS: amLODIPine BESYLATE 5 MG TABLET PO SCH (08:20)
--- NOTE | 2019-07-20 09:13 | NUR ---
Positive blood culture large gram positive rods in one of five bottles three sets drawn reported to Dr. Carvalho, see critical documentation. No orders at this time.
[2019-07-20] MEDS: KETOROLAC 30 MG/ML VIAL. IVP PRN (09:46)
[2019-07-20] MEDS: HYDROmorphone 2 MG/ML VIAL IV PRN (10:24)
[2019-07-20 11:00] VITALS: BP 115/51
[2019-07-20] MEDS ORDERED: HYDROmorphone 2 MG/ML VIAL IV PRN (11:15)
--- NOTE | 2019-07-20 11:15 | PDOC ---
PROGRESS NOTES Chief Complaint Chief Complaint A/P: Cellulitis of right lower extremity - will start on empiric antibiotics to cover strep and staph. Has risk for polymicrobial infection with diabetic and wound h istory Sepsis - will cont IVF and antibiotics DM2 - basal bolus plus insulin. A1c was 10.1 last check HTN - cont meds HLD - cont statin/fibrate Depression - cont wellbutrin Chronic pain - will cont meds. On permanent disability for her back Acute hypoxic respiratory failure - not on home O2, no formal COPD diagnosis that she knows of. Is a smoker, relapsed recently. Will obtain CXR Smoker - counseled on cessation FEN - ADA PPX - Lovenox FULL CODE Dispo - inpatient for RLE cellulitis failing outpatient treatment History of Present Illness History of Present Illness Ms Steele 53-year-old female w/ PMHx DM2, PCOS, Depression, GERD, chronic pain on permanent disability, smoker, RLE venous stasis who p/w lower extremity infection. Patient has as an outpatient and being treated for lower extremity wounds however she's noticed increasing erythema and pain to her right lower extremity. She did have a procedure done by Dr. Ruiz with angiography on July 03, 2018 which was negative for vascular occlusion. Patient states the wound care has been ongoing for 8 months. She describes chills, pain to RLE, open wounds with drainage. States she has had vascular imaging to eval arterial blood flow which was negative and venous doppler negative for DVT. Patient does complain of nausea on exam WBC 13.1, HR 120s, admitted for cellulitis failing outpatient treatment at wound center. Having more pain in leg today. Her hydrocodone was reduced overnight manager production. Leg improved slightly. CXR with no infiltrate. No CP or SOB. Her abdominal pain is improved. Vitals Vitals Vital Signs Date Time Temp Pulse Resp B/P (MAP) Pulse Ox O2 Delivery O2 Flow Rate FiO2 07/20/19 10:54 20 Nasal Cannula 1.0 07/20/19 10:54 95 07/20/19 08:20 115 134/68 07/20/19 07:00 98.5 98.5 Physical Exam General: Alert, Oriented X3, Cooperative, No acute distress Abdomen: Normal bowel sounds, Soft, No tenderness, No hepatosplenomegaly, No masses Extremities: No clubbing, No cyanosis, Normal pulses, Other (RLE tender and swollen to thigh) Skin: No breakdown, Other (RLE with rash up to thigh, red, hot, swollen) Labs LABS Laboratory Tests Test 07/19/19 11:47 07/19/19 16:37 07/19/19 20:34 07/20/19 07:38 Glucose (Fingerstick) 179 mg/dL (70-99) 184 mg/dL (70-99) 211 mg/dL (70-99) 139 mg/dL (70-99) Assessment and Plan Assessmemt and Plan Problems Medical Problems: (1) Cellulitis of right lower extremity Status: Acute (2) Sepsis Status: Acute Comment Review of Relevant I have reviewed the following items [place] (where applicable) has been applied. Labs Laboratory Tests Test 07/18/19 23:30 07/19/19 07:22 07/19/19 11:47 07/19/19 16:37 White Blood Count 13.1 x10^3/uL (4.0-11.0) Red Blood Count 4.28 x10^6/uL (3.50-5.40) Hemoglobin 12.3 g/dL (12.0-15.5) Hematocrit 37.5 % (36.0-47.0) Mean Corpuscular Volume 88 fL (79-100) Mean Corpuscular Hemoglobin 29 pg (25-35) Mean Corpuscular Hemoglobin Concent 33 g/dL (31-37) Red Cell Distribution Width 15.7 % (11.5-14.5) Platelet Count 315 x10^3/uL (140-400) Neutrophils (%) (Auto) 87 % (31-73) Lymphocytes (%) (Auto) 8 % (24-48) Monocytes (%) (Auto) 5 % (0-9) Eosinophils (%) (Auto) 0 % (0-3) Basophils (%) (Auto) 1 % (0-3) Neutrophils # (Auto) 11.3 x10^3/uL (1.8-7.7) Lymphocytes # (Auto) 1.0 x10^3/uL (1.0-4.8) Monocytes # (Auto) 0.6 x10^3/uL (0.0-1.1) Eosinophils # (Auto) 0.0 x10^3/uL (0.0-0.7) Basophils # (Auto) 0.1 x10^3/uL (0.0-0.2) Segmented Neutrophils % 74 % (35-66) Band Neutrophils % 4 % (0-9) Lymphocytes % 15 % (24-48) Monocytes % 7 % (0-10) Toxic Granulation Slight Platelet Estimate Adequate (ADEQUATE) D-Dimer (Ellyn) 1.09 ug/mlFEU (0.00-0.50) Sodium Level 136 mmol/L (136-145) Potassium Level 4.1 mmol/L (3.5-5.1) Chloride Level 100 mmol/L (98-107) Carbon Dioxide Level 27 mmol/L (21-32) Anion Gap 9 (6-14) Blood Urea Nitrogen 17 mg/dL (7-20) Creatinine 1.1 mg/dL (0.6-1.0) Estimated GFR (Cockcroft-Gault) 52.0 BUN/Creatinine Ratio 15 (6-20) Glucose Level 197 mg/dL (70-99) Lactic Acid Level 1.6 mmol/L (0.4-2.0) Calcium Level 9.2 mg/dL (8.5-10.1) Total Bilirubin 0.3 mg/dL (0.2-1.0) Aspartate Amino Transf (AST/SGOT) 19 U/L (15-37) Alanine Aminotransferase (ALT/SGPT) 19 U/L (14-59) Alkaline Phosphatase 69 U/L (46-116) Creatine Kinase 193 U/L (26-192) Total Protein 7.5 g/dL (6.4-8.2) Albumin 3.3 g/dL (3.4-5.0) Albumin/Globulin Ratio 0.8 (1.0-1.7) Procalcitonin 0.63 ng/mL (0.00-0.10) Glucose (Fingerstick) 194 mg/dL (70-99) 179 mg/dL (70-99) 184 mg/dL (70-99) Test 07/19/19 20:34 07/20/19 07:38 Glucose (Fingerstick) 211 mg/dL (70-99) 139 mg/dL (70-99) Laboratory Tests Test 07/19/19 11:47 07/19/19 16:37 07/19/19 20:34 07/20/19 07:38 Glucose (Fingerstick) 179 mg/dL (70-99) 184 mg/dL (70-99) 211 mg/dL (70-99) 139 mg/dL (70-99) Microbiology 07/19/19 Blood Culture - Preliminary, Resulted NO GROWTH AFTER 1 DAY Medications Current Medications Piperacillin Sod/ Tazobactam Sod 4.5 gm/Sodium Chloride 100 ml @ 200 mls/hr 1X ONCE IV Last administered on 07/19/19at 00:18; Start 07/19/19 at 00:00; Stop 07/19/19 at 00:29; Status DC Vancomycin HCl (Vanco Per Pharmacy) 1 each PRN DAILY PRN MC SEE COMMENTS Last administered on 07/19/19at 02:23; Start 07/18/19 at 23:45 Sodium Chloride 1,000 ml @ 1,000 mls/hr Q1H IV Last administered on 07/19/19at 01:00; Start 07/19/19 at 00:00; Stop 07/19/19 at 01:29; Status DC Morphine Sulfate (Morphine Sulfate) 4 mg 1X ONCE IV Last administered on 07/19/19at 00:19; Start 07/19/19 at 00:30; Stop 07/19/19 at 18:38; Status DC Ondansetron HCl (Zofran) 4 mg 1X ONCE IV Last administered on 07/19/19at 00:19; Start 07/19/19 at 00:30; Stop 07/19/19 at 00:31; Status DC Vancomycin HCl 2 gm/Sodium Chloride 500 ml @ 250 mls/hr 1X ONCE IV Last administered on 07/19/19at 00:22; Start 07/19/19 at 00:30; Stop 07/19/19 at 02:29; Status DC Vancomycin HCl 2 gm/Sodium Chloride 500 ml @ 250 mls/hr Q12H IV Last administered on 07/20/19at 01:07; Start 07/19/19 at 12:00 Vancomycin HCl (Vancomycin Trough Level) 1 each 1X ONCE MC ; Start 07/20/19 at 11:30; Stop 07/20/19 at 11:31 Morphine Sulfate (Morphine Sulfate) 4 mg PRN Q4HRS PRN IV SEVERE PAIN 7-10 Last administered on 07/19/19at 14:47; Start 07/19/19 at 04:45; Stop 07/19/19 at 18:38; Status DC Acetaminophen/ Hydrocodone Bitart (Lortab 7.5/325) 1 tab PRN Q4HRS PRN PO MODERATE PAIN Last administered on 07/20/19 08:16; Start 07/19/19 at 08:15 Amlodipine Besylate (Norvasc) 5 mg DAILY PO Last administered on 07/20/19 08:20; Start 07/19/19 at 09:00 Gabapentin (Neurontin) 900 mg TID PO Last administered on 07/20/19at 08:14; Start 07/19/19 at 09:00 Acetaminophen/ Hydrocodone Bitart (Lortab 10/325) 1 tab PRN Q6HRS PRN PO MODERATE PAIN Last administered on 07/19/19 08:38; Start 07/19/19 at 08:15; Stop 07/19/19 at 16:09; Status DC Lisinopril (Prinivil) 40 mg DAILY PO Last administered on 07/20/19at 08:15; Start 07/19/19 at 09:00 Methocarbamol (Robaxin) 750 mg PRN TID PRN PO muscle spasms Last administered on 07/20/19 08:15; Start 07/19/19 at 08:15 Montelukast Sodium (Singulair) 10 mg DAILY PO Last administered on 07/20/19at 08:14; Start 07/19/19 at 09:00 Nortriptyline HCl (Pamelor) 25 mg QHS PO Last administered on 07/19/19at 20:35; Start 07/19/19 at 21:00 Non-Formulary Medication (Albuterol Sulfate (Ventolin Hfa Inhaler)) 2 puff Q4HRS INH ; Start 07/19/19 at 12:00; Status UNV Bupropion HCl (Wellbutrin Xl) 300 mg DAILY PO Last administered on 07/20/19 08:14; Start 07/19/19 at 09:00 Insulin Glargine (Lantus Syringe) 32 unit QHS SQ Last administered on 07/19/19at 20:50; Start 07/19/19 at 21:00 Insulin Glargine (Lantus Syringe) 34 unit DAILYWBKFT SQ Last administered on 07/20/19at 08:13; Start 07/19/19 at 08:30 Albuterol Sulfate (Ventolin Neb Soln) 2.5 mg Q4HRS NEB Last administered on 07/20/19at 10:54; Start 07/19/19 at 08:45 Cetirizine HCl (ZyrTEC) 10 mg DAILY PO Last administered on 07/20/19at 08:15; Start 07/19/19 at 09:00 Lactobacillus Rhamnosus (Culturelle) 1 cap BID PO Last administered on 07/20/19at 08:14; Start 07/19/19 at 21:00 Insulin Human Lispro (HumaLOG) 0-9 UNITS TIDACHC SQ Last administered on 07/19/19at 20:49; Start 07/19/19 at 16:30 Dextrose (Dextrose 50%-Water Syringe) 12.5 gm PRN Q15MIN PRN IV SEE COMMENTS; Start 07/19/19 at 14:45 Dextrose (Iv Dextrose 5%) 250 ml PRN Q15MIN PRN IV SEE COMMENTS; Start 07/19/19 at 14:45 Enoxaparin Sodium (Lovenox 60mg Syringe) 60 mg Q12HR SQ Last administered on 07/20/19at 08:15; Start 07/19/19 at 21:00 Ketorolac Tromethamine (Toradol 30mg Vial) 30 mg PRN Q6HRS PRN IVP MODERATE PAIN Last administered on 07/20/19at 09:46; Start 07/19/19 at 15:30; Stop 07/24/19 at 15:29 Hydromorphone HCl (Dilaudid) 1 mg PRN Q4HRS PRN IV SEVERE PAIN Last administered on 07/20/19at 10:24; Start 07/19/19 at 16:15 Active Scripts Active Reported Nortriptyline Hcl 25 Mg Capsule 1 Cap PO QHS Celebrex (Celecoxib) 100 Mg Capsule 100 Mg PO BID 30 Days Amlodipine Besylate 5 Mg Tablet 5 Mg PO DAILY Humulin N Kwikpen (Nph, Human Insulin Isophane) 100 Unit/1 Ml Insuln.pen 32 Unit SQ HS Humulin N Kwikpen (Nph, Human Insulin Isophane) 100 Unit/1 Ml Insuln.pen 34 Unit SQ DAILYWBKFT Ventolin Hfa Inhaler (Albuterol Sulfate) 18 Gm Hfa.aer.ad 2 Puff INH Q4HRS Lisinopril 40 Mg Tablet 40 Mg PO DAILY Fenofibrate 160 Mg Tablet 160 Mg PO DAILY Gabapentin 300 Mg Capsule 900 Mg PO TID Zofran (Ondansetron Hcl) 4 Mg Tablet 1 Tab PO Q6HRS Levsin (Hyoscyamine Sulfate) 0.125 Mg Tablet 1 Tab PO Q4HRS Flonase Allergy Relief (Fluticasone Propionate) 9.9 Ml [place].susp 2 Sprays NS DAILY Robaxin-750 (Methocarbamol) 750 Mg Tablet 1 Tab PO TID Hydrocodone-Apap 10-325 (Hydrocodone Bit/Acetaminophen) 1 Each Tablet 1 Tab PO PRN Q6HRS PRN Ranitidine Hcl 150 Mg Tablet 2 Tab PO BID Wellbutrin Xl (Bupropion Hcl) 300 Mg Tab.er.24h 1 Tab PO DAILY Lasix (Furosemide) 20 Mg Tablet 2 Tab PO DAILY may take additional tabs Montelukast Sodium Tablet (Montelukast Sodium) 10 Mg Tablet 1 Tab PO DAILY Loratadine 10 Mg Tablet 1 Tab PO DAILY Metformin Hcl 1,000 Mg Tablet 1,000 Mg PO BID resume Wednesday PM hernández 07/05 Vitals/I & O Vital Sign - Last 24 Hours 07/19/19 07/19/19 07/19/19 07/19/19 12:25 12:48 13:48 14:47 Resp 20 18 28 Pulse Ox 99 99 O2 Delivery Nasal Cannula Nasal Cannula Room Air Nasal Cannula O2 Flow Rate 2.0 2.0 07/19/19 07/19/19 07/19/19 07/19/19 15:00 15:17 16:34 17:26 Temp 97.9 97.9 Pulse 99 Resp 16 28 22 B/P (MAP) 111/49 (69) Pulse Ox 98 99 O2 Delivery Nasal Cannula Nasal Cannula Nasal Cannula Nasal Cannula O2 Flow Rate 3.0 2.0 2.0 07/19/19 07/19/19 07/19/19 07/19/19 17:56 19:00 20:00 20:36 Temp 98.9 98.9 Pulse 98 Resp 18 16 B/P (MAP) 96/55 (69) Pulse Ox 97 99 O2 Delivery Nasal Cannula Nasal Cannula Nasal Cannula Nasal Cannula O2 Flow Rate 3.0 1.0 2.0 07/19/19 07/19/19 07/19/19 07/20/19 21:26 21:36 23:00 03:00 Temp 97.6 99.2 97.6 99.2 Pulse 99 117 Resp 17 17 B/P (MAP) 132/67 (88) 150/66 (94) Pulse Ox 99 99 96 90 O2 Delivery Nasal Cannula Nasal Cannula Nasal Cannula Nasal Cannula O2 Flow Rate 2.0 1.0 3.0 3.0 07/20/19 07/20/19 07/20/19 07/20/19 03:12 07:00 07:16 08:00 Temp 98.5 98.5 Pulse 115 Resp 18 B/P (MAP) 134/68 (90) Pulse Ox 96 93 94 O2 Delivery Nasal Cannula Nasal Cannula Nasal Cannula Nasal Cannula O2 Flow Rate 3.0 1.0 1.0 1.0 07/20/19 07/20/19 07/20/19 07/20/19 08:15 08:16 08:20 09:16 Pulse 115 115 Resp 18 18 B/P (MAP) 134/68 134/68 O2 Delivery Nasal Cannula Nasal Cannula O2 Flow Rate 1.0 1.0 07/20/19 07/20/19 07/20/19 10:24 10:54 10:54 Resp 20 20 Pulse Ox 95 O2 Delivery Nasal Cannula Nasal Cannula Nasal Cannula O2 Flow Rate 1.0 1.0 1.0 Intake and Output 07/19/19 07/19/19 07/20/19 15:00 23:00 07:00 Intake Total 350 ml 150 ml 0 ml Balance 350 ml 150 ml 0 ml SARAI LUCAS MD Jul 20, 2019 11:15
[2019-07-20 11:33] LABS: VANC TR 20.4 mcg/mL (10.0-20.0)
--- NOTE | 2019-07-20 11:45 | NUR ---
Vanco trough 20.4 reported to pharmacy, waiting for dose adjustment per their order. Patient verb. understanding POC.
[2019-07-20] MEDS: VANCOMYCIN PER PHARMACY MC PRN (12:03)
--- NOTE | 2019-07-20 12:03 | NUR ---
Pharmacy Vancomycin Dosing Note S: Consulted to monitor and dose vancomycin started 07/19/19. O: GERARDO MORLEY is a 53 year old F with Cellulitis, Bacteremia, Sepsis. Other Antibiotics: - LABS: Last BUN: 17 Last Creatinine: 1.1 Creatinine Clearance: 91 mL/min Last WBC: 13.1 Last Procalcitonin: 0.63 Tmax (past 24 hours): Microbiology: BLOOD CX: 07/16 GRAM POSITIVE RODS I/O: 500/- Drug Levels: Last Trough level: 20.4 (TRUE TROUGH 17.7) on 07/20/19 at 1115 Last dose given 07/20/19 at 0107 Vancomycin Dosing: Dosing Weight: Actual Target Trough: 15-20 A: When adjusted for timing, vt is at goal of 15-20 mcg/mL. P: 1. Continue Vancomycin 2000 mg IV q12h 2. Follow up Trough level as needed. 3. Pharmacy will continue to monitor, follow and adjust therapy as needed. KOFFI JAMES RPH, 07/20/19 [id number]
[2019-07-20 15:00] VITALS: BP 103/61
--- NOTE | 2019-07-20 15:30 | NUR ---
SW following. Discussed with RN, pt is from home and has two daughters who help. Pt declined need for SNU or home health and plans to go home when discharged. No further SW needs.
[2019-07-20 19:00] VITALS: BP 127/70
[2019-07-20] MEDS: NORTRIPTYLINE 25 MG CAPSULE PO SCH (21:34)
[2019-07-20 23:00] VITALS: BP 133/49
[2019-07-21] MEDS: ALBUTEROL SULFATE 2.5 MG/3 ML NEBU. NEB SCH ×5 (00:13→21:12)
[2019-07-21] MEDS: VANCOMYCIN 2 GM in IV NORMAL SALINE 500ML BAG 500 ML IV SCH ×3 (00:47→23:51)
[2019-07-21] MEDS: KETOROLAC 30 MG/ML VIAL. IVP PRN (02:54)
[2019-07-21 03:00] VITALS: BP 138/63
[2019-07-21] MEDS: HYDROcodone/APAP 7.5/325MG 1 TAB TABLET PO PRN ×4 (03:22→20:41)
[2019-07-21 05:41] LABS: BASO # 0.1 x10^3/uL (0.0-0.2); BASO % 1 % (0-3); EOS # 0.1 x10^3/uL (0.0-0.7); EOS % 1 % (0-3); HEMATOCRIT 31.4 % (36.0-47.0); HEMOGLOBIN 10.4 g/dL (12.0-15.5); LYMPH # 1.8 x10^3/uL (1.0-4.8); LYMPH % 16 % (24-48); MEAN CORPUSCULAR HEMOGLOBIN 29 pg (25-35); MEAN CORPUSCULAR HGB CONC 33 g/dL (31-37); MEAN CORPUSCULAR VOLUME 88 fL (79-100); MONO # 0.8 x10^3/uL (0.0-1.1); MONO % 8 % (0-9); NEUT % 74 % (31-73); PLATELET COUNT 312 x10^3/uL (140-400); RED BLOOD COUNT 3.57 x10^6/uL (3.50-5.40); RED CELL DISTRIBUTION WIDTH 15.6 % (11.5-14.5); WHITE BLOOD COUNT 10.8 x10^3/uL (4.0-11.0)
[2019-07-21 06:10] LABS: CALCIUM 8.2 mg/dL (8.5-10.1); CREATININE 1.2 mg/dL (0.6-1.0); POTASSIUM 4.2 mmol/L (3.5-5.1)
[2019-07-21 07:00] VITALS: BP 113/68
[2019-07-21] MEDS: GABAPENTIN 300 MG CAPSULE. PO SCH ×3 (08:45→20:40)
[2019-07-21] MEDS: LISINOPRIL 20 MG TABLET PO SCH (08:45)
[2019-07-21] MEDS: LACTOBACILLUS RHAMNOSUS GG 1 CAPSULE. PO SCH ×2 (08:45→20:40)
[2019-07-21] MEDS: MONTELUKAST SODIUM 10 MG TABLET. PO SCH (08:45)
[2019-07-21] MEDS: amLODIPine BESYLATE 5 MG TABLET PO SCH (08:46)
[2019-07-21] MEDS: buPROPion XL 150 MG TAB.ER.24H. PO SCH (08:46)
[2019-07-21] MEDS: CETIRIZINE HCL 10 MG TABLET. PO SCH (08:46)
--- NOTE | 2019-07-21 08:52 | PDOC ---
PROGRESS NOTES Chief Complaint Chief Complaint A/P: Cellulitis of right lower extremity - will start on empiric antibiotics to cover strep and staph. Has risk for polymicrobial infection with diabetic and wound h istory Sepsis - will cont IVF and antibiotics DM2 - basal bolus plus insulin. A1c was 10.1 last check HTN - cont meds HLD - cont statin/fibrate Depression - cont wellbutrin Chronic pain - will cont meds. On permanent disability for her back Acute hypoxic respiratory failure - not on home O2, no formal COPD diagnosis that she knows of. Is a smoker, relapsed recently. Will obtain CXR Smoker - counseled on cessation FEN - ADA PPX - Lovenox FULL CODE Dispo - inpatient for RLE cellulitis failing outpatient treatment History of Present Illness History of Present Illness Ms Steele 53-year-old female w/ PMHx DM2, PCOS, Depression, GERD, chronic pain on permanent disability, smoker, RLE venous stasis who p/w lower extremity infection. Patient has as an outpatient and being treated for lower extremity wounds however she's noticed increasing erythema and pain to her right lower extremity. She did have a procedure done by Dr. Ruiz with angiography on July 03, 2018 which was negative for vascular occlusion. Patient states the wound care has been ongoing for 8 months. She describes chills, pain to RLE, open wounds with drainage. States she has had vascular imaging to eval arterial blood flow which was negative and venous doppler negative for DVT. Patient does complain of nausea on exam WBC 13.1, HR 120s, admitted for cellulitis failing outpatient treatment at wound center. Having more pain in leg today. 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 Leg improved slightly. CXR with no infiltrate. No CP or SOB. Her abdominal pain is improved. She still states she feels fever and chills. No documented fevers. She has extreme pain on attempting weight-bearing. ASO titer positive. MRSA Nares negative. Plan: Will consult ID. Vitals Vitals Vital Signs Date Time Temp Pulse Resp B/P (MAP) Pulse Ox O2 Delivery O2 Flow Rate FiO2 07/21/19 07:20 100 Nasal Cannula 1.0 07/21/19 07:00 98.0 107 18 113/68 (83) 98.0 Physical Exam General: Alert, Oriented X3, Cooperative, No acute distress Abdomen: Normal bowel sounds, Soft, No tenderness, No hepatosplenomegaly, No masses Extremities: No clubbing, No cyanosis, Normal pulses, Other (RLE tender and swollen to thigh) Skin: No breakdown, Other (RLE with rash up to thigh, red, hot, swollen) Labs LABS Laboratory Tests Test 07/20/19 11:15 07/20/19 11:35 07/20/19 11:36 07/20/19 16:31 Vancomycin Level Trough 20.4 mcg/mL (10.0-20.0) Vancomycin Last Dose Date 07/20/19 Vancomycin Last Dose Time 0000 Anti-Streptolysin O Antibody 57.0 IU/mL (0.0-200.0) Nasal Screen MRSA (PCR) Negative (Negative) Glucose (Fingerstick) 185 mg/dL (70-99) 153 mg/dL (70-99) Test 07/20/19 20:59 07/21/19 04:43 07/21/19 07:29 Glucose (Fingerstick) 169 mg/dL (70-99) 154 mg/dL (70-99) White Blood Count 10.8 x10^3/uL (4.0-11.0) Red Blood Count 3.57 x10^6/uL (3.50-5.40) Hemoglobin 10.4 g/dL (12.0-15.5) Hematocrit 31.4 % (36.0-47.0) Mean Corpuscular Volume 88 fL (79-100) Mean Corpuscular Hemoglobin 29 pg (25-35) Mean Corpuscular Hemoglobin Concent 33 g/dL (31-37) Red Cell Distribution Width 15.6 % (11.5-14.5) Platelet Count 312 x10^3/uL (140-400) Neutrophils (%) (Auto) 74 % (31-73) Lymphocytes (%) (Auto) 16 % (24-48) Monocytes (%) (Auto) 8 % (0-9) Eosinophils (%) (Auto) 1 % (0-3) Basophils (%) (Auto) 1 % (0-3) Neutrophils # (Auto) 8.0 x10^3/uL (1.8-7.7) Lymphocytes # (Auto) 1.8 x10^3/uL (1.0-4.8) Monocytes # (Auto) 0.8 x10^3/uL (0.0-1.1) Eosinophils # (Auto) 0.1 x10^3/uL (0.0-0.7) Basophils # (Auto) 0.1 x10^3/uL (0.0-0.2) Sodium Level 138 mmol/L (136-145) Potassium Level 4.2 mmol/L (3.5-5.1) Chloride Level 104 mmol/L (98-107) Carbon Dioxide Level 23 mmol/L (21-32) Anion Gap 11 (6-14) Blood Urea Nitrogen 23 mg/dL (7-20) Creatinine 1.2 mg/dL (0.6-1.0) Estimated GFR (Cockcroft-Gault) 47.0 Glucose Level 175 mg/dL (70-99) Calcium Level 8.2 mg/dL (8.5-10.1) Assessment and Plan Assessmemt and Plan Problems Medical Problems: (1) Cellulitis of right lower extremity Status: Acute (2) Sepsis Status: Acute Comment Review of Relevant I have reviewed the following items [place] (where applicable) has been applied. Labs Laboratory Tests Test 07/19/19 11:47 07/19/19 16:37 07/19/19 20:34 07/20/19 07:38 Glucose (Fingerstick) 179 mg/dL (70-99) 184 mg/dL (70-99) 211 mg/dL (70-99) 139 mg/dL (70-99) Test 07/20/19 11:15 07/20/19 11:35 07/20/19 11:36 07/20/19 16:31 Vancomycin Level Trough 20.4 mcg/mL (10.0-20.0) Vancomycin Last Dose Date 07/20/19 Vancomycin Last Dose Time 0000 Anti-Streptolysin O Antibody 57.0 IU/mL (0.0-200.0) Nasal Screen MRSA (PCR) Negative (Negative) Glucose (Fingerstick) 185 mg/dL (70-99) 153 mg/dL (70-99) Test 07/20/19 20:59 07/21/19 04:43 07/21/19 07:29 Glucose (Fingerstick) 169 mg/dL (70-99) 154 mg/dL (70-99) White Blood Count 10.8 x10^3/uL (4.0-11.0) Red Blood Count 3.57 x10^6/uL (3.50-5.40) Hemoglobin 10.4 g/dL (12.0-15.5) Hematocrit 31.4 % (36.0-47.0) Mean Corpuscular Volume 88 fL (79-100) Mean Corpuscular Hemoglobin 29 pg (25-35) Mean Corpuscular Hemoglobin Concent 33 g/dL (31-37) Red Cell Distribution Width 15.6 % (11.5-14.5) Platelet Count 312 x10^3/uL (140-400) Neutrophils (%) (Auto) 74 % (31-73) Lymphocytes (%) (Auto) 16 % (24-48) Monocytes (%) (Auto) 8 % (0-9) Eosinophils (%) (Auto) 1 % (0-3) Basophils (%) (Auto) 1 % (0-3) Neutrophils # (Auto) 8.0 x10^3/uL (1.8-7.7) Lymphocytes # (Auto) 1.8 x10^3/uL (1.0-4.8) Monocytes # (Auto) 0.8 x10^3/uL (0.0-1.1) Eosinophils # (Auto) 0.1 x10^3/uL (0.0-0.7) Basophils # (Auto) 0.1 x10^3/uL (0.0-0.2) Sodium Level 138 mmol/L (136-145) Potassium Level 4.2 mmol/L (3.5-5.1) Chloride Level 104 mmol/L (98-107) Carbon Dioxide Level 23 mmol/L (21-32) Anion Gap 11 (6-14) Blood Urea Nitrogen 23 mg/dL (7-20) Creatinine 1.2 mg/dL (0.6-1.0) Estimated GFR (Cockcroft-Gault) 47.0 Glucose Level 175 mg/dL (70-99) Calcium Level 8.2 mg/dL (8.5-10.1) Laboratory Tests Test 07/20/19 11:15 07/20/19 11:35 07/20/19 11:36 07/20/19 16:31 Vancomycin Level Trough 20.4 mcg/mL (10.0-20.0) Vancomycin Last Dose Date 07/20/19 Vancomycin Last Dose Time 0000 Anti-Streptolysin O Antibody 57.0 IU/mL (0.0-200.0) Nasal Screen MRSA (PCR) Negative (Negative) Glucose (Fingerstick) 185 mg/dL (70-99) 153 mg/dL (70-99) Test 07/20/19 20:59 07/21/19 04:43 07/21/19 07:29 Glucose (Fingerstick) 169 mg/dL (70-99) 154 mg/dL (70-99) White Blood Count 10.8 x10^3/uL (4.0-11.0) Red Blood Count 3.57 x10^6/uL (3.50-5.40) Hemoglobin 10.4 g/dL (12.0-15.5) Hematocrit 31.4 % (36.0-47.0) Mean Corpuscular Volume 88 fL (79-100) Mean Corpuscular Hemoglobin 29 pg (25-35) Mean Corpuscular Hemoglobin Concent 33 g/dL (31-37) Red Cell Distribution Width 15.6 % (11.5-14.5) Platelet Count 312 x10^3/uL (140-400) Neutrophils (%) (Auto) 74 % (31-73) Lymphocytes (%) (Auto) 16 % (24-48) Monocytes (%) (Auto) 8 % (0-9) Eosinophils (%) (Auto) 1 % (0-3) Basophils (%) (Auto) 1 % (0-3) Neutrophils # (Auto) 8.0 x10^3/uL (1.8-7.7) Lymphocytes # (Auto) 1.8 x10^3/uL (1.0-4.8) Monocytes # (Auto) 0.8 x10^3/uL (0.0-1.1) Eosinophils # (Auto) 0.1 x10^3/uL (0.0-0.7) Basophils # (Auto) 0.1 x10^3/uL (0.0-0.2) Sodium Level 138 mmol/L (136-145) Potassium Level 4.2 mmol/L (3.5-5.1) Chloride Level 104 mmol/L (98-107) Carbon Dioxide Level 23 mmol/L (21-32) Anion Gap 11 (6-14) Blood Urea Nitrogen 23 mg/dL (7-20) Creatinine 1.2 mg/dL (0.6-1.0) Estimated GFR (Cockcroft-Gault) 47.0 Glucose Level 175 mg/dL (70-99) Calcium Level 8.2 mg/dL (8.5-10.1) Microbiology 07/19/19 Blood Culture - Preliminary, Resulted NO GROWTH AFTER 1 DAY Medications Current Medications Piperacillin Sod/ Tazobactam Sod 4.5 gm/Sodium Chloride 100 ml @ 200 mls/hr 1X ONCE IV Last administered on 07/19/19at 00:18; Start 07/19/19 at 00:00; Stop 07/19/19 at 00:29; Status DC Vancomycin HCl (Vanco Per Pharmacy) 1 each PRN DAILY PRN MC SEE COMMENTS Last administered on 07/20/19at 12:03; Start 07/18/19 at 23:45 Sodium Chloride 1,000 ml @ 1,000 mls/hr Q1H IV Last administered on 07/19/19at 01:00; Start 07/19/19 at 00:00; Stop 07/19/19 at 01:29; Status DC Morphine Sulfate (Morphine Sulfate) 4 mg 1X ONCE IV Last administered on 0at 00:19; Start 07/19/19 at 00:30; Stop 07/19/19 at 18:38; Status DC Ondansetron HCl (Zofran) 4 mg 1X ONCE IV Last administered on 07/19/19at 00:19; Start 07/19/19 at 00:30; Stop 07/19/19 at 00:31; Status DC Vancomycin HCl 2 gm/Sodium Chloride 500 ml @ 250 mls/hr 1X ONCE IV Last administered on 07/19/19at 00:22; Start 07/19/19 at 00:30; Stop 07/19/19 at 02:29; Status DC Vancomycin HCl 2 gm/Sodium Chloride 500 ml @ 250 mls/hr Q12H IV Last administered on 07/21/19at 00:47; Start 07/19/19 at 12:00 Vancomycin HCl (Vancomycin Trough Level) 1 each 1X ONCE MC ; Start 07/20/19 at 11:30; Stop 07/20/19 at 11:31; Status DC Morphine Sulfate (Morphine Sulfate) 4 mg PRN Q4HRS PRN IV SEVERE PAIN 7-10 Last administered on 07/19/19at 14:47; Start 07/19/19 at 04:45; Stop 07/19/19 at 18:38; Status DC Acetaminophen/ Hydrocodone Bitart (Lortab 7.5/325) 1 tab PRN Q4HRS PRN PO MODERATE PAIN Last administered on 07/20/19 08:16; Start 07/19/19 at 08:15; Stop 07/20/19 at 11:13; Status DC Amlodipine Besylate (Norvasc) 5 mg DAILY PO Last administered on 07/20/19 08:20; Start 07/19/19 at 09:00 Gabapentin (Neurontin) 900 mg TID PO Last administered on 07/20/19 21:34; Start 07/19/19 at 09:00 Acetaminophen/ Hydrocodone Bitart (Lortab 10/325) 1 tab PRN Q6HRS PRN PO MODERATE PAIN Last administered on 07/19/19at 08:38; Start 07/19/19 at 08:15; Stop 07/19/19 at 16:09; Status DC Lisinopril (Prinivil) 40 mg DAILY PO Last administered on 07/20/19at 08:15; Start 07/19/19 at 09:00 Methocarbamol (Robaxin) 750 mg PRN TID PRN PO muscle spasms Last administered on 07/20/19 08:15; Start 07/19/19 at 08:15 Montelukast Sodium (Singulair) 10 mg DAILY PO Last administered on 07/20/19at 08:14; Start 07/19/19 at 09:00 Nortriptyline HCl (Pamelor) 25 mg QHS PO Last administered on 07/20/19 21:34; Start 07/19/19 at 21:00 Non-Formulary Medication (Albuterol Sulfate (Ventolin Hfa Inhaler)) 2 puff Q4HRS INH ; Start 07/19/19 at 12:00; Status UNV Bupropion HCl (Wellbutrin Xl) 300 mg DAILY PO Last administered on 07/20/19 08:14; Start 07/19/19 at 09:00 Insulin Glargine (Lantus Syringe) 32 unit QHS SQ Last administered on 1/9/20at 22:05; Start 07/19/19 at 21:00 Insulin Glargine (Lantus Syringe) 34 unit DAILYWBKFT SQ Last administered on 07/20/19at 08:13; Start 07/19/19 at 08:30 Albuterol Sulfate (Ventolin Neb Soln) 2.5 mg Q4HRS NEB Last administered on 07/21/19at 00:13; Start 07/19/19 at 08:45; Stop 07/21/19 at 00:48; Status DC Cetirizine HCl (ZyrTEC) 10 mg DAILY PO Last administered on 07/20/19at 08:15; Start 07/19/19 at 09:00 Lactobacillus Rhamnosus (Culturelle) 1 cap BID PO Last administered on 07/20/19at 21:34; Start 07/19/19 at 21:00 Insulin Human Lispro (HumaLOG) 0-9 UNITS TIDACHC SQ Last administered on 0at 17:08; Start 07/19/19 at 16:30 Dextrose (Dextrose 50%-Water Syringe) 12.5 gm PRN Q15MIN PRN IV SEE COMMENTS; Start 07/19/19 at 14:45 Dextrose (Iv Dextrose 5%) 250 ml PRN Q15MIN PRN IV SEE COMMENTS; Start 07/19/19 at 14:45 Enoxaparin Sodium (Lovenox 60mg Syringe) 60 mg Q12HR SQ Last administered on 07/20/19at 21:35; Start 07/19/19 at 21:00 Ketorolac Tromethamine (Toradol 30mg Vial) 30 mg PRN Q6HRS PRN IVP MODERATE PAIN Last administered on 07/21/19at 02:54; Start 07/19/19 at 15:30; Stop 07/24/19 at 15:29 Hydromorphone HCl (Dilaudid) 1 mg PRN Q4HRS PRN IV SEVERE PAIN Last administered on 07/20/19at 10:24; Start 07/19/19 at 16:15; Stop 07/20/19 at 11:13; Status DC Acetaminophen/ Hydrocodone Bitart (Lortab 7.5/325) 2 tab PRN Q4HRS PRN PO MODERATE TO SEVERE PAIN Last administered on 07/21/19at 03:22; Start 07/20/19 at 11:15 Hydromorphone HCl (Dilaudid) 0.5 mg PRN Q4HRS PRN IV SEVERE PAIN; Start 07/20/19 at 11:15 Albuterol Sulfate (Ventolin Neb Soln) 2.5 mg RTQID NEB Last administered on 07/21/19at 07:19; Start 07/21/19 at 08:00 Active Scripts Active Reported Nortriptyline Hcl 25 Mg Capsule 1 Cap PO QHS Celebrex (Celecoxib) 100 Mg Capsule 100 Mg PO BID 30 Days Amlodipine Besylate 5 Mg Tablet 5 Mg PO DAILY Humulin N Kwikpen (Nph, Human Insulin Isophane) 100 Unit/1 Ml Insuln.pen 32 Unit SQ HS Humulin N Kwikpen (Nph, Human Insulin Isophane) 100 Unit/1 Ml Insuln.pen 34 Unit SQ DAILYWBKFT Ventolin Hfa Inhaler (Albuterol Sulfate) 18 Gm Hfa.aer.ad 2 Puff INH Q4HRS Lisinopril 40 Mg Tablet 40 Mg PO DAILY Fenofibrate 160 Mg Tablet 160 Mg PO DAILY Gabapentin 300 Mg Capsule 900 Mg PO TID Zofran (Ondansetron Hcl) 4 Mg Tablet 1 Tab PO Q6HRS Levsin (Hyoscyamine Sulfate) 0.125 Mg Tablet 1 Tab PO Q4HRS Flonase Allergy Relief (Fluticasone Propionate) 9.9 Ml Mil[place].susp 2 Sprays NS DAILY Robaxin-750 (Methocarbamol) 750 Mg Tablet 1 Tab PO TID Hydrocodone-Apap 10-325 (Hydrocodone Bit/Acetaminophen) 1 Each Tablet 1 Tab PO PRN Q6HRS PRN Ranitidine Hcl 150 Mg Tablet 2 Tab PO BID Wellbutrin Xl (Bupropion Hcl) 300 Mg Tab.er.24h 1 Tab PO DAILY Lasix (Furosemide) 20 Mg Tablet 2 Tab PO DAILY may take additional tabs Montelukast Sodium Tablet (Montelukast Sodium) 10 Mg Tablet 1 Tab PO DAILY Loratadine 10 Mg Tablet 1 Tab PO DAILY Metformin Hcl 1,000 Mg Tablet 1,000 Mg PO BID resume Wednesday PM hernández 07/05 Vitals/I & O Vital Sign - Last 24 Hours 07/20/19 07/20/19 07/20/19 07/20/19 09:16 10:24 10:54 10:54 Resp 18 20 20 Pulse Ox 95 O2 Delivery Nasal Cannula Nasal Cannula Nasal Cannula Nasal Cannula O2 Flow Rate 1.0 1.0 1.0 1.0 07/20/19 07/20/19 07/20/19 07/20/19 11:00 12:05 13:05 15:00 Temp 99.0 97.9 99.0 97.9 Pulse 105 103 Resp 18 18 18 18 B/P (MAP) 115/51 (72) 103/61 (75) Pulse Ox 91 93 O2 Delivery Room Air Nasal Cannula Room Air O2 Flow Rate 1.0 07/20/19 07/20/19 07/20/19 07/20/19 15:20 16:30 17:30 19:00 Temp 98.5 98.5 Pulse 109 Resp 18 18 18 B/P (MAP) 127/70 (89) Pulse Ox 90 O2 Delivery Room Air Room Air Room Air Room Air 07/20/19 07/20/19 07/20/19 07/20/19 19:49 20:15 22:01 23:00 O2 Delivery Room Air Nasal Cannula Nasal Cannula Nasal Cannula O2 Flow Rate 1.0 1.0 1.0 07/20/19 07/21/19 07/21/19 07/21/19 23:00 00:14 03:00 03:22 Temp 98.4 98.8 98.4 98.8 Pulse 109 117 Resp 18 18 B/P (MAP) 133/49 (77) 138/63 (88) Pulse Ox 90 92 O2 Delivery Room Air Nasal Cannula Room Air Nasal Cannula O2 Flow Rate 1.0 1.0 07/21/19 07/21/19 07/21/19 04:22 07:00 07:20 Temp 98.0 98.0 Pulse 107 Resp 18 B/P (MAP) 113/68 (83) Pulse Ox 93 100 O2 Delivery Nasal Cannula Nasal Cannula Nasal Cannula O2 Flow Rate 1.0 2.0 1.0 Intake and Output 07/20/19 07/20/19 07/21/19 15:00 23:00 07:00 Intake Total 900 ml Output Total 150 ml Balance 750 ml SARAI LUCAS MD Jul 21, 2019 08:52
[2019-07-21] MEDS: INSULIN GLARGINE SYRINGE. SQ SCH ×2 (09:00→20:45)
[2019-07-21] MEDS: INSULIN LISPRO 300 UNITS/3 ML VIAL. SQ SCH ×4 (09:00→20:39)
[2019-07-21 11:00] VITALS: BP 114/51
[2019-07-21] MEDS: VANCOMYCIN PER PHARMACY MC PRN (11:26)
[2019-07-21 15:00] VITALS: BP 126/71
[2019-07-21 19:00] VITALS: BP 134/63
[2019-07-21] MEDS: NORTRIPTYLINE 25 MG CAPSULE PO SCH (20:40)
[2019-07-21 23:00] VITALS: BP 157/86
[2019-07-22] MEDS: HYDROcodone/APAP 7.5/325MG 1 TAB TABLET PO PRN ×5 (00:48→21:03)
[2019-07-22 03:45] VITALS: BP 131/70
[2019-07-22] MEDS: KETOROLAC 30 MG/ML VIAL. IVP PRN (04:26)
[2019-07-22 06:07] LABS: CREATININE 1.1 mg/dL (0.6-1.0)
[2019-07-22 07:00] VITALS: BP 122/72
[2019-07-22] MEDS: ALBUTEROL SULFATE 2.5 MG/3 ML NEBU. NEB SCH (08:11)
--- NOTE | 2019-07-22 08:23 | PDOC ---
PROGRESS NOTES Chief Complaint Chief Complaint A/P: Cellulitis of right lower extremity - will start on empiric antibiotics to cover strep and staph. Has risk for polymicrobial infection with diabetic and wound h istory Sepsis - will cont IVF and antibiotics DM2 - basal bolus plus insulin. A1c was 10.1 last check HTN - cont meds HLD - cont statin/fibrate Depression - cont wellbutrin Chronic pain - will cont meds. On permanent disability for her back Acute hypoxic respiratory failure - not on home O2, no formal COPD diagnosis that she knows of. Is a smoker, relapsed recently. Will obtain CXR Smoker - counseled on cessation FEN - ADA PPX - Lovenox FULL CODE Dispo - inpatient for RLE cellulitis failing outpatient treatment History of Present Illness History of Present Illness Ms Steele 53-year-old female w/ PMHx DM2, PCOS, Depression, GERD, chronic pain on permanent disability, smoker, RLE venous stasis who p/w lower extremity infection. Patient has as an outpatient and being treated for lower extremity wounds however she's noticed increasing erythema and pain to her right lower extremity. She did have a procedure done by Dr. Ruiz with angiography on July 03, 2018 which was negative for vascular occlusion. Patient states the wound care has been ongoing for 8 months. She describes chills, pain to RLE, open wounds with drainage. States she has had vascular imaging to eval arterial blood flow which was negative and venous doppler negative for DVT. Patient does complain of nausea on exam WBC 13.1, HR 120s, admitted for cellulitis failing outpatient treatment at wound center. 07/21: Having more pain in leg today. Her hydrocodone was reduced overnight bacon skinner. Leg improved slightly. CXR with no infiltrate. No CP or SOB. Her abdominal pain is improved. She still states she feels fever and chills. No documented fe vers. She has extreme pain on attempting weight-bearing. ASO titer positive. MRSA Nares negative. Leg looks better today. She feels improved. D/w ID consultation ok for PO zyvox, augmentin, fluconazole trial today Plan: Will hopefully d/c in AM Vitals Vitals Vital Signs Date Time Temp Pulse Resp B/P (MAP) Pulse Ox O2 Delivery O2 Flow Rate FiO2 07/22/19 08:11 96 Nasal Cannula 1.0 1/11/20 05:30 16 07/22/19 03:45 97.8 107 131/70 (90) 97.8 Physical Exam General: Alert, Oriented X3, Cooperative, No acute distress Abdomen: Normal bowel sounds, Soft, No tenderness, No hepatosplenomegaly, No masses Extremities: No clubbing, No cyanosis, Normal pulses, Other (RLE tender and swollen to thigh) Skin: No breakdown, Other (RLE with rash up to thigh, red, hot, swollen) Labs LABS Laboratory Tests Test 07/21/19 11:10 07/21/19 18:05 07/21/19 20:38 07/22/19 05:15 Glucose (Fingerstick) 178 mg/dL (70-99) 224 mg/dL (70-99) 155 mg/dL (70-99) Creatinine 1.1 mg/dL (0.6-1.0) Estimated GFR (Cockcroft-Gault) 52.0 Assessment and Plan Assessmemt and Plan Problems Medical Problems: (1) Cellulitis of right lower extremity Status: Acute (2) Sepsis Status: Acute Comment Review of Relevant I have reviewed the following items [place] (where applicable) has been applied. Labs Laboratory Tests Test 07/20/19 11:15 07/20/19 11:35 07/20/19 11:36 07/20/19 16:31 Vancomycin Level Trough 20.4 mcg/mL (10.0-20.0) Vancomycin Last Dose Date 07/20/19 Vancomycin Last Dose Time 0000 Anti-Streptolysin O Antibody 57.0 IU/mL (0.0-200.0) Nasal Screen MRSA (PCR) Negative (Negative) Glucose (Fingerstick) 185 mg/dL (70-99) 153 mg/dL (70-99) Test 07/20/19 20:59 07/21/19 04:43 07/21/19 07:29 07/21/19 11:10 Glucose (Fingerstick) 169 mg/dL (70-99) 154 mg/dL (70-99) 178 mg/dL (70-99) White Blood Count 10.8 x10^3/uL (4.0-11.0) Red Blood Count 3.57 x10^6/uL (3.50-5.40) Hemoglobin 10.4 g/dL (12.0-15.5) Hematocrit 31.4 % (36.0-47.0) Mean Corpuscular Volume 88 fL (79-100) Mean Corpuscular Hemoglobin 29 pg (25-35) Mean Corpuscular Hemoglobin Concent 33 g/dL (31-37) Red Cell Distribution Width 15.6 % (11.5-14.5) Platelet Count 312 x10^3/uL (140-400) Neutrophils (%) (Auto) 74 % (31-73) Lymphocytes (%) (Auto) 16 % (24-48) Monocytes (%) (Auto) 8 % (0-9) Eosinophils (%) (Auto) 1 % (0-3) Basophils (%) (Auto) 1 % (0-3) Neutrophils # (Auto) 8.0 x10^3/uL (1.8-7.7) Lymphocytes # (Auto) 1.8 x10^3/uL (1.0-4.8) Monocytes # (Auto) 0.8 x10^3/uL (0.0-1.1) Eosinophils # (Auto) 0.1 x10^3/uL (0.0-0.7) Basophils # (Auto) 0.1 x10^3/uL (0.0-0.2) Sodium Level 138 mmol/L (136-145) Potassium Level 4.2 mmol/L (3.5-5.1) Chloride Level 104 mmol/L (98-107) Carbon Dioxide Level 23 mmol/L (21-32) Anion Gap 11 (6-14) Blood Urea Nitrogen 23 mg/dL (7-20) Creatinine 1.2 mg/dL (0.6-1.0) Estimated GFR (Cockcroft-Gault) 47.0 Glucose Level 175 mg/dL (70-99) Calcium Level 8.2 mg/dL (8.5-10.1) Test 07/21/19 18:05 07/21/19 20:38 07/22/19 05:15 Glucose (Fingerstick) 224 mg/dL (70-99) 155 mg/dL (70-99) Creatinine 1.1 mg/dL (0.6-1.0) Estimated GFR (Cockcroft-Gault) 52.0 Laboratory Tests Test 07/21/19 11:10 07/21/19 18:05 07/21/19 20:38 07/22/19 05:15 Glucose (Fingerstick) 178 mg/dL (70-99) 224 mg/dL (70-99) 155 mg/dL (70-99) Creatinine 1.1 mg/dL (0.6-1.0) Estimated GFR (Cockcroft-Gault) 52.0 Microbiology 07/19/19 Blood Culture - Preliminary, Resulted NO GROWTH AFTER 2 DAYS Medications Current Medications Piperacillin Sod/ Tazobactam Sod 4.5 gm/Sodium Chloride 100 ml @ 200 mls/hr 1X ONCE IV Last administered on 07/19/19at 00:18; Start 07/19/19 at 00:00; Stop 07/19/19 at 00:29; Status DC Vancomycin HCl (Vanco Per Pharmacy) 1 each PRN DAILY PRN MC SEE COMMENTS Last administered on 07/21/19at 11:26; Start 07/18/19 at 23:45 Sodium Chloride 1,000 ml @ 1,000 mls/hr Q1H IV Last administered on 07/19/19at 01:00; Start 07/19/19 at 00:00; Stop 07/19/19 at 01:29; Status DC Morphine Sulfate (Morphine Sulfate) 4 mg 1X ONCE IV Last administered on 07/19/19at 00:19; Start 07/19/19 at 00:30; Stop 07/19/19 at 18:38; Status DC Ondansetron HCl (Zofran) 4 mg 1X ONCE IV Last administered on 07/19/19at 00:19; Start 07/19/19 at 00:30; Stop 07/19/19 at 00:31; Status DC Vancomycin HCl 2 gm/Sodium Chloride 500 ml @ 250 mls/hr 1X ONCE IV Last administered on 07/19/19at 00:22; Start 07/19/19 at 00:30; Stop 07/19/19 at 02:29; Status DC Vancomycin HCl 2 gm/Sodium Chloride 500 ml @ 250 mls/hr Q12H IV Last administered on 07/21/19at 23:51; Start 07/19/19 at 12:00 Vancomycin HCl (Vancomycin Trough Level) 1 each 1X ONCE MC ; Start 07/20/19 at 11:30; Stop 07/20/19 at 11:31; Status DC Morphine Sulfate (Morphine Sulfate) 4 mg PRN Q4HRS PRN IV SEVERE PAIN 7-10 Last administered on 07/19/19at 14:47; Start 07/19/19 at 04:45; Stop 07/19/19 at 18:38; Status DC Acetaminophen/ Hydrocodone Bitart (Lortab 7.5/325) 1 tab PRN Q4HRS PRN PO MODERATE PAIN Last administered on 07/20/19at 08:16; Start 07/19/19 at 08:15; Stop 07/20/19 at 11:13; Status DC Amlodipine Besylate (Norvasc) 5 mg DAILY PO Last administered on 07/21/19at 08:46; Start 07/19/19 at 09:00 Gabapentin (Neurontin) 900 mg TID PO Last administered on 07/21/19 20:40; Start 07/19/19 at 09:00 Acetaminophen/ Hydrocodone Bitart (Lortab 10/325) 1 tab PRN Q6HRS PRN PO MODERATE PAIN Last administered on 07/19/19at 08:38; Start 07/19/19 at 08:15; Stop 07/19/19 at 16:09; Status DC Lisinopril (Prinivil) 40 mg DAILY PO Last administered on 07/21/19at 08:45; Start 07/19/19 at 09:00 Methocarbamol (Robaxin) 750 mg PRN TID PRN PO muscle spasms Last administered on 07/20/19at 08:15; Start 07/19/19 at 08:15 Montelukast Sodium (Singulair) 10 mg DAILY PO Last administered on 07/21/19at 08:45; Start 07/19/19 at 09:00 Nortriptyline HCl (Pamelor) 25 mg QHS PO Last administered on 07/21/19at 20:40; Start 07/19/19 at 21:00 Non-Formulary Medication (Albuterol Sulfate (Ventolin Hfa Inhaler)) 2 puff Q4HRS INH ; Start 07/19/19 at 12:00; Status UNV Bupropion HCl (Wellbutrin Xl) 300 mg DAILY PO Last administered on 07/21/19at 08:46; Start 07/19/19 at 09:00 Insulin Glargine (Lantus Syringe) 32 unit QHS SQ Last administered on 1/10/20at 20:45; Start 07/19/19 at 21:00 Insulin Glargine (Lantus Syringe) 34 unit DAILYWBKFT SQ Last administered on 07/21/19at 09:00; Start 07/19/19 at 08:30 Albuterol Sulfate (Ventolin Neb Soln) 2.5 mg Q4HRS NEB Last administered on 07/21/19at 00:13; Start 07/19/19 at 08:45; Stop 07/21/19 at 00:48; Status DC Cetirizine HCl (ZyrTEC) 10 mg DAILY PO Last administered on 07/21/19at 08:46; Start 07/19/19 at 09:00 Lactobacillus Rhamnosus (Culturelle) 1 cap BID PO Last administered on 07/21/19at 20:40; Start 07/19/19 at 21:00 Insulin Human Lispro (HumaLOG) 0-9 UNITS TIDACHC SQ Last administered on 07/21/19at 18:56; Start 07/19/19 at 16:30 Dextrose (Dextrose 50%-Water Syringe) 12.5 gm PRN Q15MIN PRN IV SEE COMMENTS; Start 07/19/19 at 14:45 Dextrose (Iv Dextrose 5%) 250 ml PRN Q15MIN PRN IV SEE COMMENTS; Start 07/19/19 at 14:45 Enoxaparin Sodium (Lovenox 60mg Syringe) 60 mg Q12HR SQ Last administered on 07/21/19at 20:42; Start 07/19/19 at 21:00 Ketorolac Tromethamine (Toradol 30mg Vial) 30 mg PRN Q6HRS PRN IVP MODERATE PAIN Last administered on 07/22/19at 04:26; Start 07/19/19 at 15:30; Stop 07/24/19 at 15:29 Hydromorphone HCl (Dilaudid) 1 mg PRN Q4HRS PRN IV SEVERE PAIN Last administered on 07/20/19at 10:24; Start 07/19/19 at 16:15; Stop 07/20/19 at 11:13; Status DC Acetaminophen/ Hydrocodone Bitart (Lortab 7.5/325) 2 tab PRN Q4HRS PRN PO MODERATE TO SEVERE PAIN Last administered on 1/11/20at 04:30; Start 07/20/19 at 11:15 Hydromorphone HCl (Dilaudid) 0.5 mg PRN Q4HRS PRN IV SEVERE PAIN; Start 07/20/19 at 11:15 Albuterol Sulfate (Ventolin Neb Soln) 2.5 mg RTQID NEB Last administered on 07/22/19at 08:11; Start 07/21/19 at 08:00 Active Scripts Active Reported Nortriptyline Hcl 25 Mg Capsule 1 Cap PO QHS Celebrex (Celecoxib) 100 Mg Capsule 100 Mg PO BID 30 Days Amlodipine Besylate 5 Mg Tablet 5 Mg PO DAILY Humulin N Kwikpen (Nph, Human Insulin Isophane) 100 Unit/1 Ml Insuln.pen 32 Unit SQ HS Humulin N Kwikpen (Nph, Human Insulin Isophane) 100 Unit/1 Ml Insuln.pen 34 Unit SQ DAILYWBKFT Ventolin Hfa Inhaler (Albuterol Sulfate) 18 Gm Hfa.aer.ad 2 Puff INH Q4HRS Lisinopril 40 Mg Tablet 40 Mg PO DAILY Fenofibrate 160 Mg Tablet 160 Mg PO DAILY Gabapentin 300 Mg Capsule 900 Mg PO TID Zofran (Ondansetron Hcl) 4 Mg Tablet 1 Tab PO Q6HRS Levsin (Hyoscyamine Sulfate) 0.125 Mg Tablet 1 Tab PO Q4HRS Flonase Allergy Relief (Fluticasone Propionate) 9.9 Ml [place].susp 2 Sprays NS DAILY Robaxin-750 (Methocarbamol) 750 Mg Tablet 1 Tab PO TID Hydrocodone-Apap 10-325 (Hydrocodone Bit/Acetaminophen) 1 Each Tablet 1 Tab PO PRN Q6HRS PRN Ranitidine Hcl 150 Mg Tablet 2 Tab PO BID Wellbutrin Xl (Bupropion Hcl) 300 Mg Tab.er.24h 1 Tab PO DAILY Lasix (Furosemide) 20 Mg Tablet 2 Tab PO DAILY may take additional tabs Montelukast Sodium Tablet (Montelukast Sodium) 10 Mg Tablet 1 Tab PO DAILY Loratadine 10 Mg Tablet 1 Tab PO DAILY Metformin Hcl 1,000 Mg Tablet 1,000 Mg PO BID resume Wednesday PM hernández 07/05 Vitals/I & O Vital Sign - Last 24 Hours 07/21/19 07/21/19 07/21/19 07/21/19 08:45 08:46 09:26 10:26 Pulse 107 107 B/P (MAP) 113/68 113/68 O2 Delivery Nasal Cannula Nasal Cannula O2 Flow Rate 1.0 1.0 07/21/19 07/21/19 07/21/19 07/21/19 11:00 11:27 15:00 15:21 Temp 99.4 98.5 99.4 98.5 Pulse 110 109 Resp 20 18 B/P (MAP) 114/51 (72) 126/71 (89) Pulse Ox 92 100 92 100 O2 Delivery Nasal Cannula Nasal Cannula Nasal Cannula Nasal Cannula O2 Flow Rate 2.0 1.0 2.0 1.0 07/21/19 07/21/19 07/21/19 07/21/19 16:14 17:14 19:00 20:30 Temp 97.9 97.9 Pulse 114 Resp 20 B/P (MAP) 134/63 (86) Pulse Ox 93 O2 Delivery Nasal Cannula Nasal Cannula Nasal Cannula Nasal Cannula O2 Flow Rate 1.0 1.0 1.0 07/21/19 07/21/19 07/21/19 07/21/19 20:41 21:12 21:41 23:00 Temp 98.0 98.0 Pulse 105 Resp 20 18 20 B/P (MAP) 157/86 (109) Pulse Ox 95 99 O2 Delivery Nasal Cannula Nasal Cannula Nasal Cannula Nasal Cannula O2 Flow Rate 1.0 1.0 1.0 07/22/19 07/22/19 07/22/19 07/22/19 00:48 01:48 03:45 04:30 Temp 97.8 97.8 Pulse 107 Resp 20 18 20 18 B/P (MAP) 131/70 (90) Pulse Ox 93 O2 Delivery Nasal Cannula Nasal Cannula Nasal Cannula Nasal Cannula O2 Flow Rate 1.0 1.0 1.0 07/22/19 07/22/19 05:30 08:11 Resp 16 Pulse Ox 96 O2 Delivery Nasal Cannula Nasal Cannula O2 Flow Rate 1.0 1.0 Intake and Output 07/21/19 07/21/19 07/22/19 15:00 23:00 07:00 Output Total 500 ml Balance -500 ml SARAI LUCAS MD Jul 22, 2019 08:23
[2019-07-22] MEDS: VANCOMYCIN PER PHARMACY MC PRN (08:40)
[2019-07-22] MEDS: LACTOBACILLUS RHAMNOSUS GG 1 CAPSULE. PO SCH ×2 (08:46→20:49)
[2019-07-22] MEDS: MONTELUKAST SODIUM 10 MG TABLET. PO SCH (08:46)
[2019-07-22] MEDS: amLODIPine BESYLATE 5 MG TABLET PO SCH (08:47)
[2019-07-22] MEDS: LISINOPRIL 20 MG TABLET PO SCH (08:47)
[2019-07-22] MEDS: buPROPion XL 150 MG TAB.ER.24H. PO SCH (08:47)
[2019-07-22] MEDS: CETIRIZINE HCL 10 MG TABLET. PO SCH (08:48)
[2019-07-22] MEDS: GABAPENTIN 300 MG CAPSULE. PO SCH ×3 (08:48→20:49)
[2019-07-22] MEDS: INSULIN LISPRO 300 UNITS/3 ML VIAL. SQ SCH ×4 (09:02→20:47)
[2019-07-22] MEDS: INSULIN GLARGINE SYRINGE. SQ SCH ×2 (09:03→21:00)
[2019-07-22 11:00] VITALS: BP 124/74
--- NOTE | 2019-07-22 11:14 | PDOC ---
Infectious Disease Note Vital Sign Vital Signs Vital Signs Date Time Temp Pulse Resp B/P (MAP) Pulse Ox O2 Delivery O2 Flow Rate FiO2 07/22/19 09:47 Room Air 07/22/19 08:47 107 131/70 07/22/19 08:11 96 1.0 07/22/19 07:00 98.2 20 98.2 Labs Lab Laboratory Tests Test 07/21/19 11:10 07/21/19 18:05 07/21/19 20:38 07/22/19 05:15 Glucose (Fingerstick) 178 mg/dL (70-99) 224 mg/dL (70-99) 155 mg/dL (70-99) Creatinine 1.1 mg/dL (0.6-1.0) Estimated GFR (Cockcroft-Gault) 52.0 Test 07/22/19 08:38 Glucose (Fingerstick) 171 mg/dL (70-99) Micro Microbiology 07/19/19 Blood Culture - Preliminary, Resulted NO GROWTH AFTER 3 DAYS 07/18. BLOOD CULTURE Final LARGE GRAM POSITIVE RODS, IN 1 OF 5 BOTTLES, (ANAEROBIC BOTTLE) THREE SETS DRAWN. Objective Assessment Cellulitis right lower extremity Leukocytosis Bacteremia lg GPR (1 of 5bottles), likely contaminate Diabetes Peripheral neuropathy Tobaccoism Morbid obesity Plan Plan of Care change antibiotics to po zyvox and augmentin, add diflucan leg elevation wt loss thank you NEYMAR ROBERTSON APRN Jul 22, 2019 11:14 GEORGE CASTELLANOS MD Jul 22, 2019 11:50
[2019-07-22] MEDS: FLUCONAZOLE 100 MG TABLET. PO SCH (12:15)
[2019-07-22] MEDS: LINEZOLID 600 MG TABLET PO SCH ×2 (12:15→20:49)
[2019-07-22] MEDS: AMOXICILLIN/K CLAV 875/125MG TABLET. PO SCH ×2 (12:15→20:50)
[2019-07-22] MEDS: ALBUTEROL SULFATE 2.5 MG/3 ML NEBU. NEB PRN ×2 (12:27→16:52)
--- NOTE | 2019-07-22 12:45 | CONS ---
DATE OF CONSULTATION: 07/22/2019 REFERRING PHYSICIAN: Dr. Carvalho REASON FOR CONSULTATION: Cellulitis. HISTORY OF PRESENT ILLNESS: This patient is a 53-year-old female with a history of chronic wound in right lower extremity for the past 6 months, for which she is followed by the wound care center. Two days ago, she noticed a sudden onset of redness, swelling, and pain associated with malaise and fever. She was admitted and dosed with vancomycin with some improvement. PAST MEDICAL HISTORY: Morbid obesity, diabetes, peripheral neuropathy, coronary artery disease, hyperlipidemia, COPD, asthma, and chronic back pain. PAST SURGICAL HISTORY: Cholecystectomy and tonsillectomy. FAMILY HISTORY: Coronary artery disease, diabetes, and hyperlipidemia. SOCIAL HISTORY: The patient lives at home. History of smoking. ALLERGIES: No known drug allergies. MEDICATIONS: Vancomycin, gabapentin, and probiotics. Other medications are available and have been reviewed on the MAR. REVIEW OF SYSTEMS: The patient states that she is feeling better. Right leg redness has improved some, but still swollen and draining. Her fevers have settled down. Denies nausea, vomiting, or diarrhea. She is requiring a little bit of supplemental oxygen of 1 liter. She denies cough, shortness of air, or chest discomfort. Denies nasal/sinus congestion or sore throat. PHYSICAL EXAMINATION: VITAL SIGNS: Temperature is 98.2, blood pressure 131/70, heart rate 107, respiratory rate 20, pulse oximetry is 96% on 1 liter, and BMI 71. GENERAL: The patient is sitting in a chair, alert, and in no apparent distress. HEENT: Pupils are equally round. Oropharynx is pink and moist. No thrush. NECK: Supple. LUNGS: Clear. HEART: S1, S2. ABDOMEN: Obese, soft, and nontender. Bowel sounds present. EXTREMITIES: Right lower extremity 1+ edema. Mild redness up to knee area. Several blisters draining, lower calf area. All other extremities unremarkable. SKIN: Warm to touch without signs of rash. NEUROLOGIC: Alert and answers questions appropriately. LABORATORY DATA: Recent WBC 10.8 from 13.1, hemoglobin 10.4, and platelets 312,000. Creatinine 1.10, GFR 52.0, and BUN 23. Electrolytes unremarkable. Total bilirubin 0.3, AST 19, and ALT 19. Procalcitonin 0.63. Vancomycin trough 20.4 on 07/20/2019. MRSA screen negative. Blood cultures from 07/18/2019 showed large gram-positive rods in 1 of 5 bottles, identification still pending. Blood cultures from 07/19/2019 negative to date. Lower extremity ultrasound negative for DVT. Chest x-ray showed borderline pulmonary vasculature, no infiltrate. IMPRESSION: 1. Cellulitis, right lower extremity. 2. Leukocytosis. 3. Bacteremia with large gram-positive rods, 1 of 5 bottles, likely contaminant. 4. Diabetes with peripheral neuropathy. 5. Tobaccoism. 6. Super morbid obesity. PLAN: 1. Change vancomycin to p.o. Zyvox, Augmentin, and fluconazole. 2. Local wound care and leg elevation. 3. Weight loss. 4. Smoking cessation. 5. Discussed with nursing. Thank you Dr. Carvalho for asking us to participate in this patient's care. Should she have further questions or concerns, please call. The patient was seen and examined and plan of care implemented by Dr. Bassem Castellanos. BASSEM CASTELLANOS MD DR: EZEQUIEL/medardo JOB#: [id number] / [id number]
[2019-07-22 15:59] VITALS: BP 83/46
[2019-07-22 19:00] VITALS: BP 145/72
[2019-07-22] MEDS: NORTRIPTYLINE 25 MG CAPSULE PO SCH (20:49)
[2019-07-22 23:00] VITALS: BP 133/72
[2019-07-23 03:16] VITALS: BP 112/58
[2019-07-23] MEDS: HYDROcodone/APAP 7.5/325MG 1 TAB TABLET PO PRN ×4 (03:17→18:14)
[2019-07-23 07:00] VITALS: BP 150/86
[2019-07-23] MEDS: INSULIN LISPRO 300 UNITS/3 ML VIAL. SQ SCH ×4 (07:30→21:25)
--- NOTE | 2019-07-23 07:37 | PDOC ---
PROGRESS NOTES Chief Complaint Chief Complaint A/P: Cellulitis of right lower extremity - will start on empiric antibiotics to cover strep and staph. Has risk for polymicrobial infection with diabetic and wound h istory Sepsis - will cont IVF and antibiotics DM2 - basal bolus plus insulin. A1c was 10.1 last check HTN - cont meds HLD - cont statin/fibrate Depression - cont wellbutrin Chronic pain - will cont meds. On permanent disability for her back Acute hypoxic respiratory failure - not on home O2, no formal COPD diagnosis that she knows of. Is a smoker, relapsed recently. Will obtain CXR Smoker - counseled on cessation Migraine headaches FEN - ADA PPX - Lovenox FULL CODE Dispo - inpatient for RLE cellulitis failing outpatient treatment History of Present Illness History of Present Illness Ms Steele 53-year-old female w/ PMHx DM2, PCOS, Depression, GERD, chronic pain on permanent disability, smoker, RLE venous stasis who p/w lower extremity infection. Patient has as an outpatient and being treated for lower extremity wounds however she's noticed increasing erythema and pain to her right lower extremity. She did have a procedure done by Dr. Ruiz with angiography on July 03, 2018 which was negative for vascular occlusion. Patient states the wound care has been ongoing for 8 months. She describes chills, pain to RLE, open wounds with drainage. States she has had vascular imaging to eval arterial blood flow which was negative and venous doppler negative for DVT. Patient does complain of nausea on exam WBC 13.1, HR 120s, admitted for cellulitis failing outpatient treatment at wound center. 07/21: Having more pain in leg today. 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 Leg improved slightly. CXR with no infiltrate. No CP or SOB. Her abdominal pain is improved. She still states she feels fever and chills. No documented fevers. She has extreme pain on attempting weight-bearing. ASO titer positive. MRSA Nares negative. 07/22: Leg looks better today. She feels improved. D/w ID consultation ok for PO zyvox, augmentin, fluconazole trial today Feeling a lot of pain with my dressing change today. Her RLE is weeping, swollen. Much less red, less warm. Her pain is better controlled, glucose better controlled. Headache again today. On po antibiotics. She does not feel ready and needs wound care reassessment. Plan: Tight compressive wrap with close wound care f/u Start topiramate for migraine PPX and appetite suppression Will hopefully d/c in AM Vitals Vitals Vital Signs Date Time Temp Pulse Resp B/P (MAP) Pulse Ox O2 Delivery O2 Flow Rate FiO2 07/23/19 07:36 20 96 Room Air 1.0 07/23/19 03:16 97.7 97 112/58 (76) 97.7 Physical Exam General: Alert, Oriented X3, Cooperative, No acute distress Abdomen: Normal bowel sounds, Soft, No tenderness, No hepatosplenomegaly, No masses Extremities: No clubbing, No cyanosis, Normal pulses, Other (RLE tender and swollen to thigh) Skin: No breakdown, Other (RLE with rash up to thigh, red, hot, swollen) Labs LABS Laboratory Tests Test 07/22/19 08:38 07/22/19 11:34 07/22/19 17:13 07/22/19 20:36 Glucose (Fingerstick) 171 mg/dL (70-99) 155 mg/dL (70-99) 179 mg/dL (70-99) 164 mg/dL (70-99) Assessment and Plan Assessmemt and Plan Problems Medical Problems: (1) Cellulitis of right lower extremity Status: Acute (2) Sepsis Status: Acute Comment Review of Relevant I have reviewed the following items [place] (where applicable) has been applied. Labs Laboratory Tests Test 07/21/19 11:10 07/21/19 18:05 07/21/19 20:38 07/22/19 05:15 Glucose (Fingerstick) 178 mg/dL (70-99) 224 mg/dL (70-99) 155 mg/dL (70-99) Creatinine 1.1 mg/dL (0.6-1.0) Estimated GFR (Cockcroft-Gault) 52.0 Test 07/22/19 08:38 07/22/19 11:34 07/22/19 17:13 07/22/19 20:36 Glucose (Fingerstick) 171 mg/dL (70-99) 155 mg/dL (70-99) 179 mg/dL (70-99) 164 mg/dL (70-99) Laboratory Tests Test 07/22/19 08:38 1/11/20 11:34 07/22/19 17:13 07/22/19 20:36 Glucose (Fingerstick) 171 mg/dL (70-99) 155 mg/dL (70-99) 179 mg/dL (70-99) 164 mg/dL (70-99) Microbiology 07/19/19 Blood Culture - Preliminary, Resulted NO GROWTH AFTER 3 DAYS Medications Current Medications Piperacillin Sod/ Tazobactam Sod 4.5 gm/Sodium Chloride 100 ml @ 200 mls/hr 1X ONCE IV Last administered on 07/19/19at 00:18; Start 07/19/19 at 00:00; Stop 07/19/19 at 00:29; Status DC Vancomycin HCl (Vanco Per Pharmacy) 1 each PRN DAILY PRN MC SEE COMMENTS Last administered on 07/22/19at 08:40; Start 07/18/19 at 23:45; Stop 07/22/19 at 11:48; Status DC Sodium Chloride 1,000 ml @ 1,000 mls/hr Q1H IV Last administered on 07/19/19at 01:00; Start 07/19/19 at 00:00; Stop 07/19/19 at 01:29; Status DC Morphine Sulfate (Morphine Sulfate) 4 mg 1X ONCE IV Last administered on 07/19/19at 00:19; Start 07/19/19 at 00:30; Stop 07/19/19 at 18:38; Status DC Ondansetron HCl (Zofran) 4 mg 1X ONCE IV Last administered on 07/19/19at 00:19; Start 07/19/19 at 00:30; Stop 07/19/19 at 00:31; Status DC Vancomycin HCl 2 gm/Sodium Chloride 500 ml @ 250 mls/hr 1X ONCE IV Last administered on 07/19/19at 00:22; Start 07/19/19 at 00:30; Stop 07/19/19 at 02:29; Status DC Vancomycin HCl 2 gm/Sodium Chloride 500 ml @ 250 mls/hr Q12H IV Last administered on 07/21/19at 23:51; Start 07/19/19 at 12:00; Stop 07/22/19 at 11:48; Status DC Vancomycin HCl (Vancomycin Trough Level) 1 each 1X ONCE MC ; Start 07/20/19 at 11:30; Stop 07/20/19 at 11:31; Status DC Morphine Sulfate (Morphine Sulfate) 4 mg PRN Q4HRS PRN IV SEVERE PAIN 7-10 Last administered on 07/19/19at 14:47; Start 07/19/19 at 04:45; Stop 07/19/19 at 18:38; Status DC Acetaminophen/ Hydrocodone Bitart (Lortab 7.5/325) 1 tab PRN Q4HRS PRN PO MODERATE PAIN Last administered on 07/20/19 08:16; Start 07/19/19 at 08:15; Stop 07/20/19 at 11:13; Status DC Amlodipine Besylate (Norvasc) 5 mg DAILY PO Last administered on 07/22/19 08:47; Start 07/19/19 at 09:00 Gabapentin (Neurontin) 900 mg TID PO Last administered on 07/22/19 20:49; Start 07/19/19 at 09:00 Acetaminophen/ Hydrocodone Bitart (Lortab 10/325) 1 tab PRN Q6HRS PRN PO MODERATE PAIN Last administered on 07/19/19at 08:38; Start 07/19/19 at 08:15; Stop 07/19/19 at 16:09; Status DC Lisinopril (Prinivil) 40 mg DAILY PO Last administered on 07/22/19at 08:47; Start 07/19/19 at 09:00 Methocarbamol (Robaxin) 750 mg PRN TID PRN PO muscle spasms Last administered on 07/20/19at 08:15; Start 07/19/19 at 08:15 Montelukast Sodium (Singulair) 10 mg DAILY PO Last administered on 07/22/19at 08:46; Start 07/19/19 at 09:00 Nortriptyline HCl (Pamelor) 25 mg QHS PO Last administered on 07/22/19at 20:49; Start 07/19/19 at 21:00 Non-Formulary Medication (Albuterol Sulfate (Ventolin Hfa Inhaler)) 2 puff Q4HRS INH ; Start 07/19/19 at 12:00; Status UNV Bupropion HCl (Wellbutrin Xl) 300 mg DAILY PO Last administered on 07/22/19 08:47; Start 07/19/19 at 09:00 Insulin Glargine (Lantus Syringe) 32 unit QHS SQ Last administered on 07/22/19at 21:00; Start 07/19/19 at 21:00 Insulin Glargine (Lantus Syringe) 34 unit DAILYWBKFT SQ Last administered on 07/22/19at 09:03; Start 07/19/19 at 08:30 Albuterol Sulfate (Ventolin Neb Soln) 2.5 mg Q4HRS NEB Last administered on 07/21/19at 00:13; Start 07/19/19 at 08:45; Stop 07/21/19 at 00:48; Status DC Cetirizine HCl (ZyrTEC) 10 mg DAILY PO Last administered on 07/22/19at 08:48; Start 07/19/19 at 09:00 Lactobacillus Rhamnosus (Culturelle) 1 cap BID PO Last administered on 07/22/19at 20:49; Start 07/19/19 at 21:00 Insulin Human Lispro (HumaLOG) 0-9 UNITS TIDACHC SQ Last administered on 07/22/19at 17:17; Start 07/19/19 at 16:30 Dextrose (Dextrose 50%-Water Syringe) 12.5 gm PRN Q15MIN PRN IV SEE COMMENTS; Start 07/19/19 at 14:45 Dextrose (Iv Dextrose 5%) 250 ml PRN Q15MIN PRN IV SEE COMMENTS; Start 07/19/19 at 14:45 Enoxaparin Sodium (Lovenox 60mg Syringe) 60 mg Q12HR SQ Last administered on 07/22/19at 20:50; Start 07/19/19 at 21:00 Ketorolac Tromethamine (Toradol 30mg Vial) 30 mg PRN Q6HRS PRN IVP MODERATE PAIN Last administered on 07/22/19at 04:26; Start 07/19/19 at 15:30; Stop 07/24/19 at 15:29 Hydromorphone HCl (Dilaudid) 1 mg PRN Q4HRS PRN IV SEVERE PAIN Last administered on 07/20/19at 10:24; Start 07/19/19 at 16:15; Stop 07/20/19 at 11:13; Status DC Acetaminophen/ Hydrocodone Bitart (Lortab 7.5/325) 2 tab PRN Q4HRS PRN PO MODERATE TO SEVERE PAIN Last administered on 07/23/19at 07:36; Start 07/20/19 at 11:15 Hydromorphone HCl (Dilaudid) 0.5 mg PRN Q4HRS PRN IV SEVERE PAIN; Start 07/20/19 at 11:15 Albuterol Sulfate (Ventolin Neb Soln) 2.5 mg RTQID NEB Last administered on 07/22/19at 08:11; Start 07/21/19 at 08:00; Stop 07/22/19 at 08:23; Status DC Albuterol Sulfate (Ventolin Neb Soln) 2.5 mg PRN QID PRN NEB shortness of breath Last administered on 07/22/19at 16:52; Start 07/22/19 at 10:00 Linezolid (Zyvox) 600 mg BID PO Last administered on 07/22/19at 20:49; Start 07/22/19 at 12:00 Amoxicillin/ Clavulanate Potassium (Augmentin 875/ 125mg) 1 tab BID PO Last administered on 07/22/19at 20:50; Start 07/22/19 at 12:00 Fluconazole (Diflucan) 200 mg DAILY PO Last administered on 07/22/19at 12:15; Start 07/22/19 at 12:00 Active Scripts Active Reported Nortriptyline Hcl 25 Mg Capsule 1 Cap PO QHS Celebrex (Celecoxib) 100 Mg Capsule 100 Mg PO BID 30 Days Amlodipine Besylate 5 Mg Tablet 5 Mg PO DAILY Humulin N Kwikpen (Nph, Human Insulin Isophane) 100 Unit/1 Ml Insuln.pen 32 Unit SQ HS Humulin N Kwikpen (Nph, Human Insulin Isophane) 100 Unit/1 Ml Insuln.pen 34 Unit SQ DAILYWBKFT Ventolin Hfa Inhaler (Albuterol Sulfate) 18 Gm Hfa.aer.ad 2 Puff INH Q4HRS Lisinopril 40 Mg Tablet 40 Mg PO DAILY Fenofibrate 160 Mg Tablet 160 Mg PO DAILY Gabapentin 300 Mg Capsule 900 Mg PO TID Zofran (Ondansetron Hcl) 4 Mg Tablet 1 Tab PO Q6HRS Levsin (Hyoscyamine Sulfate) 0.125 Mg Tablet 1 Tab PO Q4HRS Flonase Allergy Relief (Fluticasone Propionate) 9.9 Ml [place].susp 2 Sprays NS DAILY Robaxin-750 (Methocarbamol) 750 Mg Tablet 1 Tab PO TID Hydrocodone-Apap 10-325 (Hydrocodone Bit/Acetaminophen) 1 Each Tablet 1 Tab PO PRN Q6HRS PRN Ranitidine Hcl 150 Mg Tablet 2 Tab PO BID Wellbutrin Xl (Bupropion Hcl) 300 Mg Tab.er.24h 1 Tab PO DAILY Lasix (Furosemide) 20 Mg Tablet 2 Tab PO DAILY may take additional tabs Montelukast Sodium Tablet (Montelukast Sodium) 10 Mg Tablet 1 Tab PO DAILY Loratadine 10 Mg Tablet 1 Tab PO DAILY Metformin Hcl 1,000 Mg Tablet 1,000 Mg PO BID resume Wednesday PM hernández 07/05 Vitals/I & O Vital Sign - Last 24 Hours 07/22/19 07/22/19 07/22/19 07/22/19 08:00 08:11 08:47 08:47 Pulse 107 107 B/P (MAP) 131/70 131/70 Pulse Ox 96 O2 Delivery Room Air Nasal Cannula O2 Flow Rate 1.0 07/22/19 07/22/19 07/22/19 07/22/19 08:47 09:47 11:00 12:27 Temp 98.1 98.1 Pulse 99 Resp 18 B/P (MAP) 124/74 (91) Pulse Ox 94 94 O2 Delivery Nasal Cannula Room Air Nasal Cannula Room Air 07/22/19 07/22/19 07/22/19 07/22/19 14:16 15:16 15:59 16:52 Temp 97.9 97.9 Pulse 100 Resp 20 B/P (MAP) 83/46 (58) Pulse Ox 91 96 O2 Delivery Nasal Cannula Room Air Nasal Cannula Room Air O2 Flow Rate 2.0 1.0 07/22/19 07/22/19 07/22/19 07/22/19 19:00 20:00 21:03 23:00 Temp 97.7 98.3 97.7 98.3 Pulse 100 96 Resp 20 20 20 B/P (MAP) 145/72 (96) 133/72 (92) Pulse Ox 95 95 91 O2 Delivery Nasal Cannula Room Air Room Air Nasal Cannula 07/23/19 07/23/19 07/23/19 03:16 03:17 07:36 Temp 97.7 97.7 Pulse 97 Resp 20 18 20 B/P (MAP) 112/58 (76) Pulse Ox 96 96 96 O2 Delivery Nasal Cannula Room Air Room Air O2 Flow Rate 1.0 1.0 Intake and Output 07/22/19 07/22/19 07/23/19 15:00 23:00 07:00 Intake Total 480 ml 240 ml Output Total 500 ml Balance 480 ml 240 ml -500 ml SARAI LUCAS MD Jul 23, 2019 07:37
[2019-07-23] MEDS: INSULIN GLARGINE SYRINGE. SQ SCH ×2 (08:00→21:25)
--- NOTE | 2019-07-23 10:30 | PDOC ---
Infectious Disease Note Subjective Subjective Doing alright + drainage and swelling right lower leg, some better No F/C/S/N/V/D ROS ROS per HPI Vital Sign Vital Signs Vital Signs Date Time Temp Pulse Resp B/P (MAP) Pulse Ox O2 Delivery O2 Flow Rate FiO2 07/23/19 07:36 20 96 Room Air 1.0 07/23/19 07:00 97.8 101 150/86 (107) 97.8 Physical Exam PHYSICAL EXAM GENERAL: Propped up in bed, alert in NAD HEENT: Pupils are equally round. Oropharynx is pink and moist. No thrush. NECK: Supple. LUNGS: Clear. HEART: S1, S2. ABDOMEN: Obese, soft, and nontender. Bowel sounds present. EXTREMITIES: Right lower extremity 1+ edema. Mild redness up to knee area. Several blisters draining, lower calf area. All other extremities unremarkable. SKIN: Warm to touch without signs of rash. NEUROLOGIC: Alert and answers questions appropriately. Labs Lab Laboratory Tests Test 07/22/19 11:34 07/22/19 17:13 07/22/19 20:36 07/23/19 07:42 Glucose (Fingerstick) 155 mg/dL (70-99) 179 mg/dL (70-99) 164 mg/dL (70-99) 127 mg/dL (70-99) Micro Microbiology 07/19/19 Blood Culture - Preliminary, Resulted NO GROWTH AFTER 4 DAYS 07/18. BLOOD CULTURE Final LARGE GRAM POSITIVE RODS, IN 1 OF 5 BOTTLES, (ANAEROBIC BOTTLE) THREE SETS DRAWN. BLD CULT RESULT 1 Preliminary Comment Bacillus species, not Bacillus anthracis Performed at: [facility] Objective Assessment Cellulitis right lower extremity Leukocytosis Bacteremia lg GPR (1 of 5bottles), likely contaminate Bacillus species, Diabetes Peripheral neuropathy Tobaccoism Morbid obesity Plan Plan of Care Continue po zyvox, augmentin and diflucan Probiotics leg elevation wt loss Attending Co-Sign The patient was seen and interviewed as well as examined at the bedside. The chart was reviewed. The case was discussed. Agree with the plan of care. NEYMAR ROBERTSON APRN Jul 23, 2019 10:30 GEORGE CASTELLANOS MD Jul 23, 2019 11:03
[2019-07-23] MEDS: KETOROLAC 30 MG/ML VIAL. IVP PRN ×2 (10:54→18:13)
[2019-07-23] MEDS: amLODIPine BESYLATE 5 MG TABLET PO SCH (10:55)
[2019-07-23] MEDS: CETIRIZINE HCL 10 MG TABLET. PO SCH (10:57)
[2019-07-23] MEDS: FLUCONAZOLE 100 MG TABLET. PO SCH (10:57)
[2019-07-23] MEDS: LACTOBACILLUS RHAMNOSUS GG 1 CAPSULE. PO SCH ×2 (10:58→21:15)
[2019-07-23] MEDS: AMOXICILLIN/K CLAV 875/125MG TABLET. PO SCH ×2 (10:58→21:15)
[2019-07-23] MEDS: MONTELUKAST SODIUM 10 MG TABLET. PO SCH (10:58)
[2019-07-23] MEDS: GABAPENTIN 300 MG CAPSULE. PO SCH ×3 (10:58→21:14)
[2019-07-23] MEDS: LINEZOLID 600 MG TABLET PO SCH ×2 (10:58→21:14)
[2019-07-23] MEDS: LISINOPRIL 20 MG TABLET PO SCH (10:59)
[2019-07-23] MEDS: buPROPion XL 150 MG TAB.ER.24H. PO SCH (10:59)
[2019-07-23 11:00] VITALS: BP 145/75
[2019-07-23] MEDS: TOPIRAMATE 25 MG TABLET. PO SCH ×2 (11:15→21:15)
[2019-07-23 15:00] VITALS: BP 140/78
[2019-07-23 19:00] VITALS: BP 126/90
[2019-07-23] MEDS: NORTRIPTYLINE 25 MG CAPSULE PO SCH (21:15)
[2019-07-23 23:00] VITALS: BP 112/74
[2019-07-24 03:16] VITALS: BP 114/78
[2019-07-24 05:41] LABS: BASO # 0.1 x10^3/uL (0.0-0.2); BASO % 1 % (0-3); EOS # 0.2 x10^3/uL (0.0-0.7); EOS % 3 % (0-3); HEMATOCRIT 30.9 % (36.0-47.0); HEMOGLOBIN 10.1 g/dL (12.0-15.5); LYMPH % 21 % (24-48); MEAN CORPUSCULAR HEMOGLOBIN 29 pg (25-35); MEAN CORPUSCULAR HGB CONC 33 g/dL (31-37); MEAN CORPUSCULAR VOLUME 88 fL (79-100); MONO # 0.7 x10^3/uL (0.0-1.1); MONO % 7 % (0-9); NEUT # 6.4 x10^3/uL (1.8-7.7); NEUT % 69 % (31-73); PLATELET COUNT 403 x10^3/uL (140-400); RED BLOOD COUNT 3.49 x10^6/uL (3.50-5.40); RED CELL DISTRIBUTION WIDTH 15.9 % (11.5-14.5); WHITE BLOOD COUNT 9.4 x10^3/uL (4.0-11.0)
[2019-07-24 05:51] LABS: CALCIUM 8.9 mg/dL (8.5-10.1); CREATININE 1.1 mg/dL (0.6-1.0); POTASSIUM 4.5 mmol/L (3.5-5.1)
[2019-07-24] MEDS: HYDROcodone/APAP 7.5/325MG 1 TAB TABLET PO PRN ×2 (06:00→11:46)
[2019-07-24 07:00] VITALS: BP 149/84
[2019-07-24] MEDS: INSULIN LISPRO 300 UNITS/3 ML VIAL. SQ SCH ×2 (07:30→11:30)
[2019-07-24] MEDS ORDERED: Fluconazole PO (08:17)
[2019-07-24] MEDS ORDERED: LINE600T12 PO (08:17)
[2019-07-24] MEDS ORDERED: AMOX1TAB11 PO (08:17)
[2019-07-24] MEDS ORDERED: HYDR-2769 PO (08:17)
[2019-07-24] MEDS: AMOXICILLIN/K CLAV 875/125MG TABLET. PO SCH (08:38)
[2019-07-24] MEDS: MONTELUKAST SODIUM 10 MG TABLET. PO SCH (08:39)
[2019-07-24] MEDS: LINEZOLID 600 MG TABLET PO SCH (08:39)
[2019-07-24] MEDS: GABAPENTIN 300 MG CAPSULE. PO SCH ×2 (08:39→13:38)
[2019-07-24] MEDS: TOPIRAMATE 25 MG TABLET. PO SCH (08:39)
[2019-07-24] MEDS: LACTOBACILLUS RHAMNOSUS GG 1 CAPSULE. PO SCH (08:39)
[2019-07-24] MEDS: FLUCONAZOLE 100 MG TABLET. PO SCH (08:39)
[2019-07-24] MEDS: buPROPion XL 150 MG TAB.ER.24H. PO SCH (08:39)
[2019-07-24] MEDS: amLODIPine BESYLATE 5 MG TABLET PO SCH (08:40)
[2019-07-24] MEDS: CETIRIZINE HCL 10 MG TABLET. PO SCH (08:40)
[2019-07-24] MEDS: LISINOPRIL 20 MG TABLET PO SCH (08:41)
[2019-07-24] MEDS: INSULIN GLARGINE SYRINGE. SQ SCH (08:50)
--- NOTE | 2019-07-24 09:48 | PDOC ---
Infectious Disease Note Subjective: Subjective Doing alright still feels weak and dizzy + drainage and swelling right lower leg, some better No F/C/S/N/V/D Vital Signs: Vital Signs Vital Signs Date Time Temp Pulse Resp B/P (MAP) Pulse Ox O2 Delivery O2 Flow Rate FiO2 07/24/19 08:41 102 149/84 07/24/19 07:58 Room Air 07/24/19 07:00 97.9 19 95 1.0 97.9 Physical Exam: PHYSICAL EXAM GENERAL: Propped up in bed, alert in NAD HEENT: Pupils are equally round. Oropharynx is pink and moist. No thrush. NECK: Supple. LUNGS: Clear. HEART: S1, S2. ABDOMEN: Obese, soft, and nontender. Bowel sounds present. EXTREMITIES: Right lower extremity 1+ edema. Mild redness up to knee area. Several blisters draining, lower calf area. All other extremities unremarkable. SKIN: Warm to touch without signs of rash. NEUROLOGIC: Alert and answers questions appropriately. Medications: Inpatient Meds: Current Medications Medications (Trade) Dose Ordered Sig/Usman Start Time Stop Time Status Last Admin Dose Admin Acetaminophen/ Hydrocodone Bitart (Lortab 10/325) 1 tab PRN Q6HRS PRN 07/19/19 08:15 07/19/19 16:09 DC 07/19/19 08:38 1 TAB Acetaminophen/ Hydrocodone Bitart (Lortab 7.5/325) 2 tab PRN Q4HRS PRN 07/20/19 11:15 07/24/19 06:00 2 TAB Albuterol Sulfate (Ventolin Neb Soln) 2.5 mg PRN QID PRN 07/22/19 10:00 07/22/19 16:52 2.5 MG Amlodipine Besylate (Norvasc) 5 mg DAILY 07/19/19 09:00 07/24/19 08:40 5 MG Amoxicillin/ Clavulanate Potassium (Augmentin 875/ 125mg) 1 tab BID 07/22/19 12:00 07/24/19 08:38 1 TAB Bupropion HCl (Wellbutrin Xl) 300 mg DAILY 07/19/19 09:00 07/24/19 08:39 300 MG Cetirizine HCl (ZyrTEC) 10 mg DAILY 07/19/19 09:00 07/24/19 08:40 10 MG Dextrose (Dextrose 50%-Water Syringe) 12.5 gm PRN Q15MIN PRN 07/19/19 14:45 Dextrose (Iv Dextrose 5%) 250 ml PRN Q15MIN PRN 07/19/19 14:45 Enoxaparin Sodium (Lovenox 60mg Syringe) 60 mg Q12HR 07/19/19 21:00 07/24/19 08:41 60 MG Fluconazole (Diflucan) 200 mg DAILY 07/22/19 12:00 07/24/19 08:39 200 MG Gabapentin (Neurontin) 900 mg TID 07/19/19 09:00 07/24/19 08:39 900 MG Hydromorphone HCl (Dilaudid) 0.5 mg PRN Q4HRS PRN 07/20/19 11:15 Insulin Glargine (Lantus Syringe) 34 unit DAILYWBKFT 07/19/19 08:30 07/24/19 08:50 34 UNIT Insulin Human Lispro (HumaLOG) 0-9 UNITS TIDACHC 07/19/19 16:30 07/23/19 21:25 3 UNITS Ketorolac Tromethamine (Toradol 30mg Vial) 30 mg PRN Q6HRS PRN 07/19/19 15:30 07/24/19 15:29 07/23/19 18:13 30 MG Lactobacillus Rhamnosus (Culturelle) 1 cap BID 07/19/19 21:00 07/24/19 08:39 1 CAP Linezolid (Zyvox) 600 mg BID 07/22/19 12:00 07/24/19 08:39 600 MG Lisinopril (Prinivil) 40 mg DAILY 07/19/19 09:00 07/24/19 08:41 40 MG Methocarbamol (Robaxin) 750 mg PRN TID PRN 07/19/19 08:15 07/20/19 08:15 750 MG Montelukast Sodium (Singulair) 10 mg DAILY 07/19/19 09:00 07/24/19 08:39 10 MG Morphine Sulfate (Morphine Sulfate) 4 mg PRN Q4HRS PRN 07/19/19 04:45 07/19/19 18:38 DC 07/19/19 14:47 4 MG Non-Formulary Medication (Albuterol Sulfate (Ventolin Hfa Inhaler)) 2 puff Q4HRS 07/19/19 12:00 UNV Nortriptyline HCl (Pamelor) 25 mg QHS 07/19/19 21:00 07/23/19 21:15 25 MG Ondansetron HCl (Zofran) 4 mg 1X ONCE 07/19/19 00:30 07/19/19 00:31 DC 07/19/19 00:19 4 MG Piperacillin Sod/ Tazobactam Sod 4.5 gm/Sodium Chloride 100 ml @ 200 mls/hr 1X ONCE 07/19/19 00:00 07/19/19 00:29 DC 07/19/19 00:18 200 MLS/HR Sodium Chloride 1,000 ml @ 1,000 mls/hr Q1H 07/19/19 00:00 07/19/19 01:29 DC 07/19/19 01:00 1,000 MLS/HR Topiramate (Topamax) 25 mg BID 07/23/19 11:00 07/24/19 08:39 25 MG Vancomycin HCl (Vanco Per Pharmacy) 1 each PRN DAILY PRN 07/18/19 23:45 07/22/19 11:48 DC 07/22/19 08:40 1 EACH Vancomycin HCl (Vancomycin Trough Level) 1 each 1X ONCE 07/20/19 11:30 07/20/19 11:31 DC Vancomycin HCl 2 gm/Sodium Chloride 500 ml @ 250 mls/hr Q12H 07/19/19 12:00 07/22/19 11:48 DC 07/21/19 23:51 250 MLS/HR Labs: Lab Laboratory Tests Test 07/23/19 11:32 07/23/19 16:51 07/23/19 20:25 07/24/19 04:50 Glucose (Fingerstick) 172 mg/dL (70-99) 162 mg/dL (70-99) 202 mg/dL (70-99) White Blood Count 9.4 x10^3/uL (4.0-11.0) Red Blood Count 3.49 x10^6/uL (3.50-5.40) Hemoglobin 10.1 g/dL (12.0-15.5) Hematocrit 30.9 % (36.0-47.0) Mean Corpuscular Volume 88 fL (79-100) Mean Corpuscular Hemoglobin 29 pg (25-35) Mean Corpuscular Hemoglobin Concent 33 g/dL (31-37) Red Cell Distribution Width 15.9 % (11.5-14.5) Platelet Count 403 x10^3/uL (140-400) Neutrophils (%) (Auto) 69 % (31-73) Lymphocytes (%) (Auto) 21 % (24-48) Monocytes (%) (Auto) 7 % (0-9) Eosinophils (%) (Auto) 3 % (0-3) Basophils (%) (Auto) 1 % (0-3) Neutrophils # (Auto) 6.4 x10^3/uL (1.8-7.7) Lymphocytes # (Auto) 2.0 x10^3/uL (1.0-4.8) Monocytes # (Auto) 0.7 x10^3/uL (0.0-1.1) Eosinophils # (Auto) 0.2 x10^3/uL (0.0-0.7) Basophils # (Auto) 0.1 x10^3/uL (0.0-0.2) Sodium Level 138 mmol/L (136-145) Potassium Level 4.5 mmol/L (3.5-5.1) Chloride Level 105 mmol/L (98-107) Carbon Dioxide Level 26 mmol/L (21-32) Anion Gap 7 (6-14) Blood Urea Nitrogen 24 mg/dL (7-20) Creatinine 1.1 mg/dL (0.6-1.0) Estimated GFR (Cockcroft-Gault) 52.0 Glucose Level 130 mg/dL (70-99) Calcium Level 8.9 mg/dL (8.5-10.1) Test 07/24/19 07:11 Glucose (Fingerstick) 139 mg/dL (70-99) Objective: Assessment: Cellulitis right lower extremity improving slowly Leukocytosis Bacteremia lg GPR (1 of 5 bottles), likely contaminate Bacillus species, Diabetes Peripheral neuropathy Tobaccoism Morbid obesity Plan: Plan of Care Continue po zyvox, augmentin and diflucan Probiotics leg elevation wt loss VANESSA CASTELLANOS MD Jul 24, 2019 09:48
[2019-07-24 10:45] VITALS: BP 140/82
--- NOTE | 2019-07-24 11:44 | PDOC3 ---
Discharge Summary Visit Information Date of Admission: Jul 18, 2019 Date of Discharge: Jul 24, 2019 Admitting Diagnosis Comment: REcurrenmt RLE cellulitsi MORBid obesity NArc tolerant Final Diagnosis Problems Medical Problems: (1) Cellulitis of right lower extremity Status: Acute (2) Sepsis Status: Acute Brief Hospital Course Allergies Allergies Coded Allergies Type Severity Reaction Last Updated Verified No Known Drug Allergies 06/30/19 No Vital Signs Vital Signs Date Time Temp Pulse Resp B/P (MAP) Pulse Ox O2 Delivery O2 Flow Rate FiO2 07/24/19 10:45 97.8 99 19 140/82 (101) 95 Nasal Cannula 1.0 97.8 Lab Results Laboratory Tests Test 07/22/19 17:13 07/22/19 20:36 07/23/19 07:42 07/23/19 11:32 Glucose (Fingerstick) 179 mg/dL (70-99) 164 mg/dL (70-99) 127 mg/dL (70-99) 172 mg/dL (70-99) Test 07/23/19 16:51 07/23/19 20:25 07/24/19 04:50 07/24/19 07:11 Glucose (Fingerstick) 162 mg/dL (70-99) 202 mg/dL (70-99) 139 mg/dL (70-99) White Blood Count 9.4 x10^3/uL (4.0-11.0) Red Blood Count 3.49 x10^6/uL (3.50-5.40) Hemoglobin 10.1 g/dL (12.0-15.5) Hematocrit 30.9 % (36.0-47.0) Mean Corpuscular Volume 88 fL (79-100) Mean Corpuscular Hemoglobin 29 pg (25-35) Mean Corpuscular Hemoglobin Concent 33 g/dL (31-37) Red Cell Distribution Width 15.9 % (11.5-14.5) Platelet Count 403 x10^3/uL (140-400) Neutrophils (%) (Auto) 69 % (31-73) Lymphocytes (%) (Auto) 21 % (24-48) Monocytes (%) (Auto) 7 % (0-9) Eosinophils (%) (Auto) 3 % (0-3) Basophils (%) (Auto) 1 % (0-3) Neutrophils # (Auto) 6.4 x10^3/uL (1.8-7.7) Lymphocytes # (Auto) 2.0 x10^3/uL (1.0-4.8) Monocytes # (Auto) 0.7 x10^3/uL (0.0-1.1) Eosinophils # (Auto) 0.2 x10^3/uL (0.0-0.7) Basophils # (Auto) 0.1 x10^3/uL (0.0-0.2) Sodium Level 138 mmol/L (136-145) Potassium Level 4.5 mmol/L (3.5-5.1) Chloride Level 105 mmol/L (98-107) Carbon Dioxide Level 26 mmol/L (21-32) Anion Gap 7 (6-14) Blood Urea Nitrogen 24 mg/dL (7-20) Creatinine 1.1 mg/dL (0.6-1.0) Estimated GFR (Cockcroft-Gault) 52.0 Glucose Level 130 mg/dL (70-99) Calcium Level 8.9 mg/dL (8.5-10.1) Test 07/24/19 11:29 Glucose (Fingerstick) 144 mg/dL (70-99) Laboratory Tests Test 07/23/19 16:51 07/23/19 20:25 07/24/19 04:50 07/24/19 07:11 Glucose (Fingerstick) 162 mg/dL (70-99) 202 mg/dL (70-99) 139 mg/dL (70-99) White Blood Count 9.4 x10^3/uL (4.0-11.0) Red Blood Count 3.49 x10^6/uL (3.50-5.40) Hemoglobin 10.1 g/dL (12.0-15.5) Hematocrit 30.9 % (36.0-47.0) Mean Corpuscular Volume 88 fL (79-100) Mean Corpuscular Hemoglobin 29 pg (25-35) Mean Corpuscular Hemoglobin Concent 33 g/dL (31-37) Red Cell Distribution Width 15.9 % (11.5-14.5) Platelet Count 403 x10^3/uL (140-400) Neutrophils (%) (Auto) 69 % (31-73) Lymphocytes (%) (Auto) 21 % (24-48) Monocytes (%) (Auto) 7 % (0-9) Eosinophils (%) (Auto) 3 % (0-3) Basophils (%) (Auto) 1 % (0-3) Neutrophils # (Auto) 6.4 x10^3/uL (1.8-7.7) Lymphocytes # (Auto) 2.0 x10^3/uL (1.0-4.8) Monocytes # (Auto) 0.7 x10^3/uL (0.0-1.1) Eosinophils # (Auto) 0.2 x10^3/uL (0.0-0.7) Basophils # (Auto) 0.1 x10^3/uL (0.0-0.2) Sodium Level 138 mmol/L (136-145) Potassium Level 4.5 mmol/L (3.5-5.1) Chloride Level 105 mmol/L (98-107) Carbon Dioxide Level 26 mmol/L (21-32) Anion Gap 7 (6-14) Blood Urea Nitrogen 24 mg/dL (7-20) Creatinine 1.1 mg/dL (0.6-1.0) Estimated GFR (Cockcroft-Gault) 52.0 Glucose Level 130 mg/dL (70-99) Calcium Level 8.9 mg/dL (8.5-10.1) Test 07/24/19 11:29 Glucose (Fingerstick) 144 mg/dL (70-99) Brief Hospital Course Ms. López is a 53 old morbidly obese female with good BS< claims she follows with our wound care as OP. SHe was admitted for cellultis RT leg and staye dhere 7 days com managed with ID, 1/ bottles GPC - likely contaminant, Afebrile non toxic appearing, normal WBC< OK for home today, PO zyvox, diflucan, augmentin - dw DR Dockery, A WAIt for wound care to see her before dc to give her instructions I personally examined the wound myself today COnsults: ID Discharge Information Condition at Discharge: Improved, Stable Disposition/Orders: D/C to Home Scheduled Albuterol Sulfate (Ventolin Hfa Inhaler) 18 Gm Hfa.aer.ad, 2 PUFF INH Q4HRS for FOR ASTHMA, Ref 0 (Reported) Entered as Reported by: DORENE GARCIA on 07/03/19951 Last Action: Converted on 07/19/19807 by SARAI LUCAS MD Amlodipine Besylate (Amlodipine Besylate) 5 Mg Tablet, 5 MG PO DAILY for , (Reported) Entered as Reported by: DORENE GARCIA on 07/03/19951 Last Action: Continued on 07/19/19807 by SARAI LUCAS MD Amoxicillin/Potassium Clav (Amox Tr-K Clv 875-125 Mg Tab) 1 Each Tablet, 1 TAB PO BID for cellulitis, rt leg for 14 Days, #28 Prescribed by: RAMONA BRIDGES on 07/24/19 0817 Bupropion Hcl (Wellbutrin Xl) 300 Mg Tab.er.24h, 1 TAB PO DAILY, #90 Ref 3 (Reported) Entered as Reported by: Leticia Bermeo on 12/31/151318 Last Action: Converted on 07/19/19808 by SARAI LUCAS MD Celecoxib (Celebrex) 100 Mg Capsule, 100 MG PO BID for for 30 Days, Ref 0 (Reported) Entered as Reported by: DORENE GARCIA on 07/03/19951 Fenofibrate (Fenofibrate) 160 Mg Tablet, 160 MG PO DAILY for chol, (Reported) Entered as Reported by: DORENE GARCIA on 07/03/19951 Fluticasone Propionate (Flonase Allergy Relief) 9.9 Ml [place].susp, 2 SPRAYS NS DAILY, (Reported) Entered as Reported by: Leticia Bermeo on 12/31/151318 Furosemide (Lasix) 20 Mg Tablet, 2 TAB PO DAILY for , #90 Ref 1 (Reported) may take additional tabs Entered as Reported by: Leticia Bermeo on 12/31/151318 Gabapentin (Gabapentin) 300 Mg Capsule, 900 MG PO TID for NEUROGENIC PAIN, (Reported) Entered as Reported by: DORENE GARCIA on 07/03/19951 Last Action: Continued on 07/19/19807 by SARAI LUCAS MD Hyoscyamine Sulfate (Levsin) 0.125 Mg Tablet, 1 TAB PO Q4HRS, #120 Ref 5 (Reported) Entered as Reported by: Leticia Bermeo on 12/31/151318 Linezolid (Zyvox) 600 Mg Tablet, 600 MG PO BID for vellulitis, #14 Prescribed by: RAMONA BRIDGES on 07/24/19 0817 Lisinopril (Lisinopril) 40 Mg Tablet, 40 MG PO DAILY for FOR HYPERTENSION, #30 Ref 0 (Reported) Entered as Reported by: DORENE GARCIA on 07/03/19951 Last Action: Continued on 07/19/19807 by SARAI LUCAS MD Loratadine (Loratadine) 10 Mg Tablet, 1 TAB PO DAILY, #30 Ref 5 (Reported) Entered as Reported by: Leticia Bermeo on 12/31/15 1319 Metformin Hcl (Metformin Hcl) 1,000 Mg Tablet, 1,000 MG PO BID for dm, Ref 0 (Reported) resume Wednesday PM hernández 07/05 Entered as Reported by: Leticia Bermeo on 12/31/15 1319 Methocarbamol (Robaxin-750) 750 Mg Tablet, 1 TAB PO TID, #90 (Reported) Entered as Reported by: Leticia Bermeo on 12/31/151318 Last Action: Continued on 07/19/19807 by SARAI LUCAS MD Montelukast Sodium (Montelukast Sodium Tablet ) 10 Mg Tablet, 1 TAB PO DAILY, #30 Ref 5 (Reported) Entered as Reported by: Leticia Bermeo on 12/31/151318 Last Action: Continued on 07/19/19807 by SARAI LUCAS MD Nortriptyline Hcl (Nortriptyline Hcl) 25 Mg Capsule, 1 CAP PO QHS for , #30 (Reported) Entered as Reported by: DORENE GARCIA on 07/03/19951 Last Action: Continued on 07/19/19807 by SARAI LUCAS MD Nph, Human Insulin Isophane (Humulin N Kwikpen) 100 Unit/1 Ml Insuln.pen, 34 UNIT SQ DAILYWBKFT for dm, (Reported) Entered as Reported by: DORENE GARCIA on 07/03/19951 Last Action: Converted on 07/19/19808 by SARAI LUCAS MD Nph, Human Insulin Isophane (Humulin N Kwikpen) 100 Unit/1 Ml Insuln.pen, 32 UNIT SQ HS for dm, (Reported) Entered as Reported by: DORENE GARCIA on 07/03/19 0952 Last Action: Converted on 07/19/19 0809 by SARAI LUCAS MD Ondansetron Hcl (Zofran) 4 Mg Tablet, 1 TAB PO Q6HRS, #20 (Reported) Entered as Reported by: Leticia Bermeo on 12/31/15 1319 Ranitidine Hcl (Ranitidine Hcl) 150 Mg Tablet, 2 TAB PO BID for , #180 Ref 3 (Reported) Entered as Reported by: Leticia Bermeo on 12/31/15 1319 [Fluconazole] 100 MG TABLET, 200 MG PO DAILY for celultyis, tinea for 14 Days, #28 Prescribed by: RAMONA BRIDGES on 07/24/19816 Scheduled PRN Hydrocodone Bit/Acetaminophen (Hydrocodone-Apap 10-325 ) 1 Each Tablet, 1 TAB PO PRN Q6HRS PRN for PAIN, #20 Ref 0 Prescribed by: RAMONA BRIDGES on 07/24/19816 RAMONA BRIDGES MD Jul 24, 2019 11:44
--- NOTE | 2019-07-24 11:53 | NUR ---
SW following. Discussed with RN. RN advised no SW needs and anticipates pt will discharge home today with self care.
--- NOTE | 2019-07-24 14:07 | NUR ---
Discharge Note: PT DISCHARGED HOME WITH SELF CARE. PT LEFT FACILITY VIA PRIVATE VEHICLE WITH DAUGHTER AT 1545. PT STABLE AND ALERT UPON DISCHARGE. PT PIV REMOVED FROM L FA WITHOUT COMPLICATIONS, BANDAGE APPLIED. PT EDUCATED ABOUT DISCHARGE MEDICATIONS, DISCHARGE INSTRUCTIONS, AND FOLLOW-UP CARE. PT VOICED NO CONCERNS AT THIS TIME. WOUND DRESSING CHANGED PER ORDER AND PICTURES TAKEN ON 07/23/19 AT 2100. PT LEFT WITH ALL PERSONAL BELONGINGS. PT INFORMED THAT WOUND CARE CLINIC WOULD BE IN TOUCH TO SCHEDULE AN APPOINTMENT TO FOLLOW-UP WITH THEM. GERARDO MORLEY Discharge instructions and discharge home medications reviewed with Patient and a copy given. All questions have been answered and understanding verbalized.
== END 2019-07-24 13:45 | disposition home or self-care (01) | DRG 871 ==
LOC: ER 19:12 → 5 SOUTH 23:45
PROVIDERS: ADMIT Internal Medicine; ATTEND Internal Medicine
DX: A41.9 Sepsis, unspecified organism (principal); J96.01 Acute respiratory failure with hypoxia; L03.115 Cellulitis of right lower limb; Z68.45 Body mass index [BMI] 70 or greater, adult; E11.42 Type 2 diabetes mellitus with diabetic polyneuropathy; E66.01 Morbid (severe) obesity due to excess calories; E78.5 Hyperlipidemia, unspecified; F17.210 Nicotine dependence, cigarettes, uncomplicated; F32.9 Major depressive disorder, single episode, unspecified; G43.909 Migraine, unspecified, not intractable, without status migrainosus; G89.29 Other chronic pain; I10 Essential (primary) hypertension; I25.10 Atherosclerotic heart disease of native coronary artery without angina pectoris; I87.8 Other specified disorders of veins; J44.9 Chronic obstructive pulmonary disease, unspecified; Z82.49 Family history of ischemic heart disease and other diseases of the circulatory system; Z83.3 Family history of diabetes mellitus; K21.9 Gastro-esophageal reflux disease without esophagitis
CPT/HCPCS: 36415; 71045; 80048; 80053; 80202; 82550; 82565; 82962; 83605; 84145; 85007; 85025; 85379; 86060; 87040; 87077; 87205; 87641; 93005; 93971; 94640; 94760; 96365; 96368; 96375; J1170; J1650; J1815; J1885; J2270; J2405; J2543; J3370; J7030; J7040; J7613; 99291-25; G0378

== ENCOUNTER → 2019-09-27 | Outpatient (CLI) | payer BC ==
[~2019-09-27] MED LIST changes: +AMOX1TAB11 PO; +Fluconazole PO; +LINE600T12 PO
--- NOTE | 2019-09-28 14:42 | RAD ---
MR#: [id number] Date of Study: 09/27/2019 Ordering Physician: ALYSSA ROCHA, Referring Physician: ALYSSA ROCHA, Tech: Soco Meyer RDMS, NANNETTET, RTR APPROVED REPORT Patient Location : OUT-PATIENT Indications Venous Ulcers Findings Limited evaluation of the right ankle area reveals 2 perforators at the site of the overall wound bas ed on description. The first editorial director is approximately 13 cm up and measures 2.7 mm in diameter and the second editorial director at as approximately 15 cm up and measures 2.9 mm in diameter. Critical Notification Critical Value: No <Conclusion> 1. To localize perforators at the level of the right ankle wound on the medial aspect. Signed by : Bo Hernandez, Electronically Approved : 09/28/2019 14:41:43
== END | disposition home or self-care (01) ==
LOC: US 11:00
PROVIDERS: ATTEND Internal Medicine Cardiovascular Disease
DX: I83.019 Varicose veins of right lower extremity with ulcer of unspecified site (principal)
CPT/HCPCS: 93971

== ENCOUNTER → 2020-04-29 | Outpatient (CLI) | payer BC ==
[~2020-04-29] MED LIST changes: +AMLO-186 PO; -AMLO5TAB10 PO
== END ==
LOC: LAB 08:53
PROVIDERS: ATTEND Internal Medicine Gastroenterology
DX: Z01.812 Encounter for preprocedural laboratory examination (principal); Z20.828 Contact with and (suspected) exposure to other viral communicable diseases; R13.10 Dysphagia, unspecified
CPT/HCPCS: U0003-CS

== ENCOUNTER → 2020-05-01 | Day surgery (SDC) | payer BC ==
[~2020-05-01] MED LIST changes: +IV RINGERS,LACTATED 1000ML 1,000 ML IV ONE; +LIDOCAINE 2% PF 5 ML VIAL. ONE; +PROPOFOL 10 MG/ML (20ML) VIAL. IV ONE
[2020-05-01 09:55] VITALS: BP 145/68
== END ==
LOC: ENDOS 08:15
PROVIDERS: ATTEND Internal Medicine Gastroenterology
DX: K92.2 Gastrointestinal hemorrhage, unspecified (principal); I10 Essential (primary) hypertension; E11.9 Type 2 diabetes mellitus without complications; K21.9 Gastro-esophageal reflux disease without esophagitis; E78.5 Hyperlipidemia, unspecified; F41.9 Anxiety disorder, unspecified; F32.9 Major depressive disorder, single episode, unspecified; E78.00 Pure hypercholesterolemia, unspecified; J45.909 Unspecified asthma, uncomplicated; M19.90 Unspecified osteoarthritis, unspecified site; F17.210 Nicotine dependence, cigarettes, uncomplicated; Z79.899 Other long term (current) drug therapy; Z79.84 Long term (current) use of oral hypoglycemic drugs; Z83.3 Family history of diabetes mellitus
CPT/HCPCS: 43450; 82962; J2704

== ENCOUNTER → 2021-10-08 | Outpatient (CLI) | payer BC ==
[2020-05-01 09:55] VITALS: BP 145/68
[~2021-10-08] MED LIST changes: -IV RINGERS,LACTATED 1000ML 1,000 ML IV ONE; -LIDOCAINE 2% PF 5 ML VIAL. ONE; +LISI10TA16 PO; -LISI10TA2 PO; -PROPOFOL 10 MG/ML (20ML) VIAL. IV ONE
--- NOTE | 2021-10-09 04:40 | KCIC ---
EXAMINATION: XR CHEST 2V CLINICAL HISTORY: DYSPNEA ON EXERTION X'S MONTHS, ASTHMA, SMOKER EXAM DATE/TIME: 10/08/2021 3:07 PM COMPARISON: 07/19/2019 FINDINGS: Lines, Tubes, and Devices: None. Cardiomediastinal Silhouette: Within normal limits. Lungs and Pleura: Mild patchy opacities in the right lower lung zone. No evidence of pleural effusion . Pulmonary vasculature unremarkable. Bones and Soft Tissues: Degenerative changes in the thoracic spine. IMPRESSION: Mild patchy airspace disease in the right lower lung zone. Electronically signed by: Johnson Sanchez DO (10/09/2021 4:37 AM) [facility]
== END ==
LOC: KCIC 15:02
PROVIDERS: ATTEND Family Medicine
DX: R91.8 Other nonspecific abnormal finding of lung field (principal); M47.814 Spondylosis without myelopathy or radiculopathy, thoracic region; F17.200 Nicotine dependence, unspecified, uncomplicated
CPT/HCPCS: 71046